=== PATIENT | female | born 1940 | race Caucasian/White ===

== ENCOUNTER 2018-01-05 10:34 | Emergency (ER) | payer OTHER ==
[2018-01-05] MEDS ORDERED: ONDANSETRON 4 MG/2 ML VIAL ONE (10:47)
[2018-01-05] MEDS ORDERED: MORPHINE 4 MG/ML SYR ONE (10:47)
[2018-01-05] MEDS ORDERED: BUPIVACAINE 0.5% PF 10 ML VIAL ONE (11:17)
[2018-01-05] MEDS ORDERED: LIDOCAINE 1% MPF 5 ML VIAL ONE (11:17)
[2018-01-05] MEDS ORDERED: LIDOCAINE 1% W/EPI 1:100,000 MDV 50 ML VIAL ONE (11:19)
--- NOTE | 2018-01-05 12:07 | RAD REPORT ---
EXAM DESCRIPTION: RAD - Wrist Left 3 View - 01/05/2018 11:08 am CLINICAL HISTORY: Fall, wrist pain COMPARISON: None. FINDINGS: Comminuted fracture dislocation of the distal radius is identified. The distal components are fragmented. The ventral portion of the distal radius fracture fragment remains approximated to th e shaft. There is significant angulation deformity. The dorsal fracture fragment is displaced and ove rlaps the distal humerus. Carpal bones are displaced along with the fracture fragment. The fusiform o r triquetrum bone was not displaced. Advanced degenerative change at the first metacarpal trapezium articulation. IMPRESSION: Comminuted distal radius fracture with fragmentation of the distal component. There is p artial dorsal dislocation and overlap of the distal fracture fragments. The triquetrum or pisiform bone maintains normal positioning to the ulna with the remaining carpal yesi socorro displaced posteriorly. Scaphoid and lunate bones maintain normal positioning to the displaced dis brunilda radius fracture fragment.
--- NOTE | 2018-01-05 13:36 | RAD REPORT ---
EXAM DESCRIPTION: RAD - Wrist Left 2 View - 01/05/2018 1:28 pm FINDINGS: Frontal and lateral projections were obtained labeled post reduction. Comminuted distal radius fracture is again identified. There has been reduction to near anatomic alig nment and position. Ulna styloid fracture is evident. Carpal bones appear to be in anatomic position.
--- NOTE | 2018-01-05 14:06 | ER ---
Nurse's Notes [facility] Name: Rosa Ag Age: 77 yrs Sex: Female : 1940 Arrival Date: 01/05/2018 Time: 10:35 Bed 4 Private MD: Surendra Avendano T Diagnosis: Left Distal Radius Fracture Presentation: 01/05 10:38 Presenting complaint: Patient states: Left arm and right wrist pain after fall from hb standing approx [address] TECH. Negative LOC. Not on blood thinners. Transition of care: patient was not received from another setting of care. Onset of symptoms was January 05, 2018. Care prior to arrival: None. 10:38 Method Of Arrival: Ambulatory hb 10:38 Acuity: RITA 3 hb 10:45 Initial Sepsis Screen: Does the patient meet any 2 criteria? No. Patient's initial hb sepsis screen is negative. Does the patient have a suspected source of infection? No. Patient's initial sepsis screen is negative. 10:45 Mechanism of Injury: Fall from standing position. Trauma event details: Injury occurred hb in the [facility], Injury occurred: at home. Injury occurred: January 05, 2018. Trauma Activation: Not Applicable Physician: ED Physician; Name: ; Notified At: ; Arrived At: Physician: General Surgeon; Name: ; Notified At: ; Arrived At: Physician: Radiology; Name: ; Notified At: ; Arrived At: Physician: Respiratory; Name: ; Notified At: ; Arrived At: Physician: Lab; Name: ; Notified At: ; Arrived At: Historical: - Allergies: 10:44 Levaquin; hb - PMHx: 10:44 Asthma; hb - Immunization history: Last tetanus immunization: < 5 years ago. - Social history:: Smoking status: Patient/guardian denies using tobacco. Screenin:42 Abuse screen: Denies threats or abuse. Denies injuries from another. Tuberculosis hb screening: No symptoms or risk factors identified. 10:42 Nutritional screening: No deficits noted. Fall Risk None identified. hb Primary Survey: 10:40 A: Airway: patent, No supplemental oxygen in use on arrival. Oral cavity: clear, hb Trachea midline. Breathing/Chest: Respiratory pattern: regular, Respiratory effort: spontaneous, unlabored, Breath sounds: clear, bilaterally. Chest inspection: symmetrical rise and fall of the chest. Circulation: Pulses: palpable . Skin color: pink, Skin temperature: warm, dry. Disability Alert. 11:30 Reassessment Airway Airway Patent Breathing/Chest Respiratory pattern Regular hb Respiratory effort Spontaneous Unlabored Chest inspection Symmetrical Circulation Pulses Palpable Color [place] Disability Alert. 12:30 Reassessment Airway Airway Patent Oxygen No O2 Breathing/Chest Respiratory pattern hb Regular Respiratory effort Spontaneous Unlabored Chest inspection Symmetrical Circulation Pulses Palpable Color [place] Disability Alert. 13:30 Reassessment Airway Airway Patent Oxygen No O2 Breathing/Chest Respiratory pattern hb Regular Respiratory effort Spontaneous Unlabored Chest inspection Symmetrical Circulation Pulses Palpable Color [place] Disability Alert. Secondary Survey: 10:40 HEENT: No deficits noted. Gastrointestinal: No deficits noted. : No deficits noted. hb No signs and/or symptoms were reported regarding the genitourinary system. Musculoskeletal: left wrist. Assessment: 10:45 General: Appears in no apparent distress. uncomfortable, Behavior is cooperative, hb anxious, crying. Pain: Pain currently is 8 out of 10 on a pain scale. Neuro: Level of Consciousness is awake, alert, obeys commands, Oriented to person, place, time, situation. EENT: No signs and/or symptoms were reported regarding the EENT system. Cardiovascular: Capillary refill < 3 seconds Patient's skin is warm and dry. Respiratory: Airway is patent Respiratory effort is even, unlabored, Respiratory pattern is regular, symmetrical. GI: No signs and/or symptoms were reported involving the gastrointestinal system. : No signs and/or symptoms were reported regarding the genitourinary system. Derm: No signs and/or symptoms reported regarding the dermatologic system. Skin is intact, is healthy with good turgor, Skin is pink, warm \T\ dry. Musculoskeletal: left wrist. Vital Signs: 10:39 BP 133 / 97; Pulse 89; Resp 18; Temp 97.9; Pulse Ox 100% on R/A; Pain 10/10; hb 11:30 BP 136 / 86; Pulse 88; Resp 16; Pulse Ox 100% on R/A; hb 12:30 BP 156 / 79; Pulse 62; Resp 18; Pulse Ox 96% ; sv 13:32 BP 154 / 80; Pulse 67; Resp 18; Pulse Ox 96% ; sv [place] Coma Score: 11:30 Eye Response: spontaneous(4). Verbal Response: oriented(5). Motor Response: obeys hb commands(6). Total: 15. Trauma Score (Adult): 10:39 Eye Response: spontaneous(1); Verbal Response: oriented(1); Motor Response: obeys hb commands(2); Systolic BP: > 89 mm Hg(4); Respiratory Rate: 10 to 29 per min(4); [place] Score: 15; Trauma Score: 12 11:30 Eye Response: spontaneous(1); Verbal Response: oriented(1); Motor Response: obeys hb commands(2); Systolic BP: > 89 mm Hg(4); Respiratory Rate: 10 to 29 per min(4); Mary Score: 15; Trauma Score: 12 ED Course: 10:35 Patient arrived in ED. as 10:36 Surendra Avendano MD is Private Physician. as 10:36 Ta Bui PA is PHCP. cp 10:36 Jason Loredo MD is Attending Physician. cp 10:39 Triage completed. hb 10:45 Patient has correct armband on for positive identification. Bed in low position. Call hb light in reach. Side rails up X 1. 10:45 Arm band placed on right wrist. hb 10:46 Inserted saline lock: 20 gauge in right antecubital area, using aseptic technique. ss Blood collected. 10:53 Ema Avery, RN is Primary Nurse. hb 10:55 Patient maintains SpO2 saturation greater than 95% on room air. Thermoregulation: warm hb blanket given to patient. 11:03 X-ray completed. Portable x-ray completed in exam room. Patient tolerated procedure jb2 poorly. DUE TO PAIN. 11:04 XRAY Wrist LEFT 3 view In Process Unspecified. EDMS 13:25 X-ray completed. Portable x-ray completed in exam room. Patient tolerated procedure sw well. 13:26 XRAY Wrist LEFT 2 view In Process Unspecified. EDMS 14:05 Guillermo Larson MD is Referral Physician. cp 14:12 Orthoglass splint: Sugar tong splint applied on left arm. Radial pulse present and jb1 within normal limits before and after application of orthoglass splint. Capillary refill was three seconds before and after application of the orthoglass splint. Sling applied to left arm. 14:26 No provider procedures requiring assistance completed. Patient did not have IV access hb during this emergency room visit. Administered Medications: 10:54 Drug: morphine 4 mg Route: IVP; Site: right antecubital; hb 11:30 Follow up: Response: No adverse reaction; Pain is decreased hb 10:54 Drug: Zofran 4 mg Route: IVP; Site: right antecubital; hb 14:25 Follow up: Response: No adverse reaction hb 11:33 Drug: Marcaine (0.5 %) 5 ml {Note: by MARÍA Page.} Volume: 10 ml; Route: Infiltration; hb 11:35 Drug: Lidocaine-Epinephrine -1%: (1:100,000) 5 ml {Note: by MARÍA Page.} Volume: 20 ml; hb Route: Infiltration; Intake: 14:27 PO: 0ml; Total: 0ml. hb Output: 14:27 Urine: 0ml; Total: 0ml. hb Outcome: 13:38 Patient's length of stay in the Emergency Department was greater than 2 hours. awaiting hb dispo Patient's length of stay extended due to 14:05 Discharge ordered by MD. cp 14:26 Discharged to home via wheelchair, with friend. hb 14:26 Condition: stable 14:26 Discharge instructions given to patient, Instructed on discharge instructions, follow up and referral plans. medication usage, Demonstrated understanding of instructions, follow-up care, medications, Prescriptions given X 1. 14:28 Patient left the ED. hb Signatures: Dispatcher [employer] EDMS Jordan Siegel1 Tona Galicia, Willy Boswell RN2 Vivian Brooks Shelby, RN RN ss Warren, Shannon sw Page, Corey, PA PA cp Baxter, Heather, RN RN hb Corrections: (The following items were deleted from the chart) 14:29 14:26 Discharge instructions given to patient, Instructed on discharge instructions, hb follow up and referral plans. medication usage, Demonstrated understanding of instructions, follow-up care, medications, hb
--- NOTE | 2018-01-05 14:06 | EDPHYS ---
Physician Documentation [facility] Name: Rosa Ag Age: 77 yrs Sex: Female : 1940 Arrival Date: 01/05/2018 Time: 10:35 Bed 4 Private MD: Surendra Avendano T ED Physician Jason Loredo HPI: 01/05 10:40 This 77 yrs old Female presents to ER via Ambulatory with complaints of Wrist cp Injury. 10:40 The patient or guardian reports decreased range of motion, deformity, injury, pain. The cp complaints affect the left wrist diffusely. Context: The problem was sustained at home, resulted from a fall. Onset: The symptoms/episode began/occurred just prior to arrival. Historical: - Allergies: 10:44 Levaquin; hb - PMHx: 10:44 Asthma; hb - Immunization history: Last tetanus immunization: < 5 years ago. - Social history:: Smoking status: Patient/guardian denies using tobacco. ROS: 10:45 Constitutional: Negative for body aches, chills, fever, poor PO intake. cp 10:45 Eyes: Negative for injury, pain, redness, and discharge. cp 10:45 ENT: Negative for drainage from ear(s), ear pain, sore throat, difficulty swallowing, difficulty handling secretions. 10:45 Cardiovascular: Negative for chest pain, edema, palpitations. 10:45 Respiratory: Negative for cough, shortness of breath, wheezing. 10:45 Abdomen/GI: Negative for abdominal pain, nausea, vomiting, and diarrhea, black/tarry stool, rectal bleeding. 10:45 Back: Negative for pain at rest, pain with movement, radiated pain. 10:45 MS/extremity: Positive for injury or acute deformity, decreased range of motion, pain, of the left wrist. 10:45 Neuro: Negative for altered mental status, headache, loss of consciousness, syncope, near syncope, weakness. 10:45 All other systems are negative. Exam: 10:52 Head/Face: Normocephalic, atraumatic. cp 10:52 Constitutional: The patient appears in no acute distress, alert, awake, non-diaphoretic, non-toxic, well developed, well nourished, uncomfortable. 10:55 Eyes: Periorbital structures: appear normal, Conjunctiva: normal, no exudate, no cp injection, Sclera: no appreciated abnormality, Lids and lashes: appear normal, bilaterally. 10:55 ENT: External ear(s): are unremarkable, Nose: is normal, Mouth: is normal, Posterior pharynx: is normal, airway is patent, no erythema, no exudate. 10:55 Neck: C-spine: vertebral tenderness, is not appreciated, crepitus, is not appreciated, ROM/movement: is normal, is supple, without pain, no range of motions limitations, no nuchal rigidity. 10:55 Chest/axilla: Inspection: normal, Palpation: is normal, no crepitus, no tenderness. 10:55 Cardiovascular: Rate: normal, Rhythm: regular. 10:55 Respiratory: the patient does not display signs of respiratory distress, Respirations: cp normal, no use of accessory muscles, no retractions, no splinting, no tachypnea, Breath sounds: are clear throughout, no decreased breath sounds, no stridor, no wheezing. 10:55 Abdomen/GI: Inspection: abdomen appears normal, Bowel sounds: active, all quadrants, Palpation: abdomen is soft and non-tender, in all quadrants, rebound tenderness, is not appreciated, voluntary guarding, is not appreciated, involuntary guarding, is not appreciated. 10:55 Back: pain, is absent, ROM is normal. 10:55 Musculoskeletal/extremity: Pulses: noted to be 2+ in the right radial artery and left radial artery, Sensation intact. Joints: All joints are normal except the left wrist displays deformity, painful range of motion, swelling, tenderness. 10:55 Skin: cellulitis, is not appreciated, no rash present. 10:55 Neuro: Orientation: to person, place \T\ time. Mentation: is normal, lucid, able to follow commands. Vital Signs: 10:39 BP 133 / 97; Pulse 89; Resp 18; Temp 97.9; Pulse Ox 100% on R/A; Pain 10/10; hb 11:30 BP 136 / 86; Pulse 88; Resp 16; Pulse Ox 100% on R/A; hb 12:30 BP 156 / 79; Pulse 62; Resp 18; Pulse Ox 96% ; sv 13:32 BP 154 / 80; Pulse 67; Resp 18; Pulse Ox 96% ; sv [place] Coma Score: 11:30 Eye Response: spontaneous(4). Verbal Response: oriented(5). Motor Response: obeys hb commands(6). Total: 15. Trauma Score (Adult): 10:39 Eye Response: spontaneous(1); Verbal Response: oriented(1); Motor Response: obeys hb commands(2); Systolic BP: > 89 mm Hg(4); Respiratory Rate: 10 to 29 per min(4); Mary Score: 15; Trauma Score: 12 11:30 Eye Response: spontaneous(1); Verbal Response: oriented(1); Motor Response: obeys hb commands(2); Systolic BP: > 89 mm Hg(4); Respiratory Rate: 10 to 29 per min(4); Mary Score: 15; Trauma Score: 12 Procedures: 14:15 Reduction: of the left wrist, using traction, Patient tolerated well. hematoma block cp performed using 5 ccs of 50/50 mixture of 1% lidocaine with epi and 0.5% marcaine. 14:20 Splinting: Splint applied to left wrist using Orthoglass splint, sugar tong type. cp applied by myself. tech. Examined by me, post splint application: neurovascular intact, Patient tolerated well. MDM: 10:36 Patient medically screened. cp 11:00 Differential diagnosis: dislocation, open fracture, closed fracture, contusion. cp 14:05 Data reviewed: vital signs, nurses notes, radiologic studies, plain films, and as a cp result, I will discharge patient. 14:05 Test interpretation: by ED physician or midlevel provider: plain radiologic studies. cp Counseling: I had a detailed discussion with the patient and/or guardian regarding: the historical points, exam findings, and any diagnostic results supporting the discharge/admit diagnosis, radiology results, the need for outpatient follow up, a orthopedic surgeon, to return to the emergency department if symptoms worsen or persist or if there are any questions or concerns that arise at home. Response to treatment: the patient's symptoms have markedly improved after treatment. 01/05 10:41 Order name: XRAY Wrist LEFT 3 view; Complete Time: 12:13 cp 01/05 12:14 Interpretation: Reviewed. cp 01/05 13:20 Order name: XRAY Wrist LEFT 2 view; Complete Time: 13:39 cp 01/05 10:41 Order name: IV; Complete Time: 10:46 cp 01/05 13:35 Order name: Splint: left wrist sugartong; Complete Time: 14:22 cp 01/05 13:35 Order name: Cindy; Complete Time: 14:22 cp Administered Medications: 10:54 Drug: morphine 4 mg Route: IVP; Site: right antecubital; hb 11:30 Follow up: Response: No adverse reaction; Pain is decreased hb 10:54 Drug: Zofran 4 mg Route: IVP; Site: right antecubital; hb 14:25 Follow up: Response: No adverse reaction hb 11:33 Drug: Marcaine (0.5 %) 5 ml {Note: by MARÍA Bui.} Volume: 10 ml; Route: Infiltration; hb 11:35 Drug: Lidocaine-Epinephrine -1%: (1:100,000) 5 ml {Note: by MARÍA Bui.} Volume: 20 ml; hb Route: Infiltration; Disposition: 16:40 Co-signature as Attending Physician, Jason Loredo MD. rn Disposition: 01/05/18 14:05 Discharged to Home. Impression: Left Distal Radius Fracture. - Condition is Stable. - Discharge Instructions: Wrist Fracture. - Prescriptions for Tylenol- Codeine #3 300-30 mg Oral Tablet - take 2 tablets by ORAL route every 6 hours As needed; 20 tablet. - Medication Reconciliation Form, Thank You Letter, Antibiotic Education, Prescription Opioid Use form. - Follow up: Guillermo Larson MD; When: 1 - 2 days; Reason: Recheck today's complaints. - Problem is new. - Symptoms have improved. Signatures: Dispatcher [employer] Jason Anderson MD MD rn Page, Corey, PA PA cp Baxter, Heather RN RN
[2018-01-05 14:34] VITALS: TEMP 97.9
[2018-01-05 14:37] VITALS: O2SAT 96
[2018-01-05 14:38] VITALS: BP 154/80
== END 2018-01-05 14:28 | disposition home or self-care (01) ==
LOC: ER 10:34
PROC: 2W3DX1Z Immobilization of Left Lower Arm using Splint (ICD-10-PCS; principal; 2018-01-05)
DX: S52.502A Unspecified fracture of the lower end of left radius, initial encounter for closed fracture (principal); W19.XXXA Unspecified fall, initial encounter; Y92.9 Unspecified place or not applicable
CPT/HCPCS: 29125; 73100; 73110; 96374; 96375; 99284; J2405

== ENCOUNTER 2018-01-11 06:18 | Day surgery (SDC) | payer OTHER ==
[2018-01-10 13:50] LABS: Absolute Lymphocytes (CBC) 1.7 K/uL (0.7-4.9); Absolute Monocytes 0.8 K/uL (0.1-1.3); Absolute Neutrophil 5.4 K/uL (1.8-8.0); Basophils % 0.4 % (0-1.3); Eosinophils % 2.5 % (0-4.4); Hematocrit 36.9 % (36.0-45.0); Lymphocytes % 20.7 % (15.3-44.8); MCH 30.2 pg (27.0-35.0); MCV 90.7 fL (80-100); MPV 8.2 fL (7.6-11.3); Monocytes % 9.4 % (3.3-12.3); RBC Red Blood Cell Count 4.06 M/uL (3.86-4.86)
[2018-01-10 13:59] LABS: Potassium 4.3 mEq/L (3.6-5.0)
[2018-01-10 14:03] LABS: Albumin 4.1 g/dL (3.2-5.5); Bilirubin Total 0.6 mg/dL (0.3-1.2); Protein, Total 7.1 g/dL (6.0-8.3)
[2018-01-10 14:11] LABS: A1c Component 0.44 mg/dL; Hemoglobin A1c 5.3 % (4-6.0)
--- NOTE | 2018-01-10 14:21 | RAD REPORT ---
EXAM DESCRIPTION: Iris Pa And Lat (2 Views)01/10/2018 2:16 pm CLINICAL HISTORY: Preop COMPARISON: August 2017 FINDINGS: The lungs appear clear of acute infiltrate. The heart is normal size. Scoliosis involves the thoracolumbar spine. IMPRESSION: No acute abnormalities displayed
--- NOTE | 2018-01-10 15:24 | EKG ---
Test Date: 2018-01-10 Test Time: 13:25:12 Rubber Press Operator: RACHEL MEASUREMENT RESULTS: Intervals: Rate: 73 ND: 138 QRSD: 72 QT: 390 QTc: 429 [place]: P: 25 ND: 138 QRS: 22 T: 21 INTERPRETIVE STATEMENTS: Normal sinus rhythm Normal ECG Compared to ECG 08/16/2017 13:06:19 No significant changes Electronically Signed On 01-10-18 15:23:19 CDT by Royce Plummer
[2018-01-10 15:43] LABS: Urine Appearance SL CLOUDY; Urine Color YELLOW
[2018-01-10 15:44] LABS: Urine Bilirubin 1+ (NEG); Urine Blood TRACE (NEG); Urine Glucose NEGATIVE (NEG); Urine Protein TRACE (NEG); Urine Specific Gravity >1.030 (1.005-1.030)
[2018-01-10 15:45] LABS: Urine Microscopic Reflex ORDER UMIC; Urine Urobilinogen 0.2 mg/dL (0.2-1.0)
[2018-01-10 16:13] LABS: Urine Amorphous Sediment 3+ /HPF (NONE SEEN); Urine Bacteria 20-50 /HPF (<20); Urine Culture Reflex Order REFLEXED; Urine RBC <5 /HPF (NONE SEEN)
[2018-01-11] MEDS ORDERED: Ringers Lactate 1,000 ML IV ONE (06:39)
[2018-01-11] MEDS ORDERED: CEFAZOLIN/SWI 1gm 0 GM/0 ML SYR ONE (06:43)
[2018-01-11 07:01] VITALS: BP 119/66; TEMP 98.9; O2SAT 95
[2018-01-11] MEDS ORDERED: PROPOFOL 200 MG/20 ML VIAL IV ONE (07:11)
[2018-01-11] MEDS ORDERED: LIDOCAINE 2% MPF 5 ML VIAL ONE (07:11)
[2018-01-11] MEDS ORDERED: FENTANYL CITR 100 MCG/2 ML ONE (07:11)
[2018-01-11] MEDS ORDERED: ONDANSETRON 4 MG/2 ML VIAL ONE (07:12)
[2018-01-11] MEDS ORDERED: MEPERIDINE HCL 25 MG/0.5 ML ONE (07:45)
[2018-01-11 11:02] LABS: Urine Appearance CLOUDY; Urine Bilirubin NEGATIVE (NEG); Urine Blood NEGATIVE (NEG); Urine Color YELLOW; Urine Glucose NEGATIVE (NEG); Urine Protein NEGATIVE (NEG); Urine Specific Gravity 1.015 (1.005-1.030); Urine Urobilinogen 0.2 mg/dL (0.2-1.0)
[2018-01-11 11:08] LABS: Urine Microscopic Reflex ORDER UMIC
[2018-01-11 11:19] LABS: Urine Bacteria >50 /HPF (<20); Urine Culture Reflex Order REFLEXED; Urine RBC <5 /HPF (NONE SEEN)
== END 2018-01-11 09:00 | disposition home health service (06) ==
LOC: OR 06:18
PROVIDERS: ATTEND Orthopaedic Surgery
DX: S52.532A Colles' fracture of left radius, initial encounter for closed fracture (principal); Z53.8 Procedure and treatment not carried out for other reasons
CPT/HCPCS: 36415; 71046; 80053; 83036; 85025; 87077 ×2; 87086; 87088; 87186 ×2; 93005; J2175; 81003; 81015; J0690; J2405; J3010

== ENCOUNTER 2018-11-26 13:58 | Emergency (ER) | payer OTHER ==
--- OUTSIDE RECORDS SUMMARY | 2018-11-26 14:00 | XMS REPORT | Clinical Summary ---
:1940 Author Organization [facility] Address [address] [place] [id number] Care Team Providers Name Role Phone Asked, No Pcp Primary Care Provider Unavailable Allergies No Known Allergies Medications No known medications Active Problems Problem Noted Date Fracture, Colles, left, closed 01/17/2018 Encounters Date Type Specialty Care Team Description 04/25/2018 Office Visit Orthopedic Surgery Nino Cisneros Arthritis of carpometacarpal (CMC) joint of left thumb (Primary Dx); MD Bella Left wrist pain 03/21/2018 Office Visit Orthopedic Surgery Nino Cisneros Closed fracture of distal MD Bella end of radius with routine healing, unspecified fracture morphology, unspecified laterality, subsequent encounter (Primary Dx) 03/09/2018 Office Visit Orthopedic Surgery Nino Cisneros Closed Aleksandra' fracture of MD Bella left radius, initial encounter (Primary Dx) 03/02/2018 Office Visit Orthopedic Surgery Nino Cisneros Closed Aleksandra' fracture of MD Bella left radius, initial encounter (Primary Dx) 02/21/2018 Office Visit Orthopedic Surgery Nino Cisneros Closed Aleksandra' fracture of MD Bella left radius, initial encounter (Primary Dx) 01/31/2018 Office Visit Orthopedic Surgery Nino Cisneros Closed Darryns' fracture of MD Bella left radius, initial encounter (Primary Dx) 01/17/2018 Office Visit Orthopedic Surgery Nino Cisneros Closed Aleksandra' fracture of MD Bella left radius, initial encounter (Primary Dx) 01/12/2018 Office Visit Orthopedic Surgery Nino Cisneros Closed Colles' fracture of left radius, initial encounter (Primary Dx); MD Bella Left wrist pain after 11/25/2017 Social History Tobacco Use Types Packs/Day Years Used Date Never Assessed Sex Assigned at Date Recorded Not on file Job Start Date Occupation Industry Not on file Not on file Not on file Travel History Travel Start Travel End No recent travel history available. Last Filed Vital Signs Not on file Plan of Treatment Health Maintenance Due Date Last Done Comments SHINGLES VACCINES (#1) 1992 65+ PNEUMOCOCCAL VACCINE (1 of 2 - PCV13) 2007 PNEUMOCOCCAL POLYSACCHARIDE VACCINE AGE 65 AND OVER 2007 INFLUENZA VACCINE 04/13/2018 Procedures Procedure Name Priority Date/Time Associated Diagnosis Comments XR WRIST 3+ VW LEFT Routine 04/25/2018 9:48 Left wrist pain Results for this AM CDT procedure are in the results section. [place] ARTHROCENTESIS Routine 04/25/2018 9:45 Arthritis of Results for this ASPIR&/INJ SMALL AM CDT carpometacarpal (CMC) procedure are in JT/BURSA W/O US joint of left thumb the results section. XR WRIST 3+ VW LEFT Routine 02/21/2018 10:30 Closed Colles' Results for this AM CDT fracture of left procedure are in radius, initial the results encounter section. XR WRIST 3+ VW LEFT Routine 01/12/2018 11:21 Left wrist pain Results for this AM CDT procedure are in the results section. after 11/25/2017 Results XR Wrist 3+ Vw Left (04/25/2018 9:48 AM CDT)Only the most recent of3 resultswithin the time period is included. Narrative Performed At 3 views left wrist in good penetrance and quality with out any acute [facility] obvious fractures, dislocations or calcifications unless HPI states otherwise. Performing Organization Address City/State/Zipcode Phone Number [facility] [address] [place] [address] Hand/Upper Extremity Injection/Arthrocentesis (04/25/2018 9:45 AM CDT) Narrative Performed At Nino Cisneros MD 04/26/20188:15 AM Hand/Upper Extremity Injection/Arthrocentesis Date/Time: 04/25/2018 12:22 PM Consent given by: patient Supporting Documentation Indications: pain Procedure Details Condition: osteoarthritis Site: L thumb Left side: Needle size: 25 G Approach: posterior Left thumb medications administered: 1 mL lidocaine 10 mg/mL (1 %); 6 mg betamethasone acetate & sodium phosphate 6 mg/mL Patient tolerance: patient tolerated the procedure well with no immediate complications after 11/25/2017 Insurance Payer Benefit Plan / Group Subscriber ID Type Phone Address MEDICARE MEDICARE PART A AND B xxxxxxxxxx Medicare [place], [place] Advance Directives Patient has advance care planning documents on file. For more information, please contact:Efrain Segundo[address] [place] [address]
--- NOTE | 2018-11-26 17:28 | RAD REPORT ---
EXAM DESCRIPTION: RAD - Lumbar Spine 3 Views - 11/26/2018 4:58 pm CLINICAL HISTORY: LOWER BACK PAIN Radiculopathy COMPARISON: No comparisons FINDINGS: Diffuse osteopenia is seen with multiple mild wedge compression deformities noted in the l ower thoracic and lumbar lumbar vertebral bodies, undetermined age. Moderate degenerative levoscolios is is present. Cholecystectomy clips noted. Followup MR imaging the thoracic and lumbar spine would b e helpful for assessment of the age of the above detailed mild compression deformities.
--- NOTE | 2018-11-26 17:30 | ER ---
Nurse's Notes [facility] Name: Rosa Ag Age: 78 yrs Sex: Female : 1940 Arrival Date: 11/26/2018 Time: 14:01 Bed 30 Private MD: Surendra Avendano T Diagnosis: Low back pain Presentation: 11/26 14:18 Presenting complaint: Patient states: "I hurt my back trying to [employer] a heavy rock in aa5 the garden on ". Pt c/o right hip, right lower back pain. Transition of care: patient was not received from another setting of care. Onset of symptoms was November 2018. Risk Assessment: Do you want to hurt yourself or someone else? Patient reports no desire to harm self or others. Initial Sepsis Screen: Does the patient meet any 2 criteria? No. Patient's initial sepsis screen is negative. Does the patient have a suspected source of infection? No. Patient's initial sepsis screen is negative. Care prior to arrival: None. 14:18 Method Of Arrival: Ambulatory aa5 14:18 Acuity: RITA 4 aa5 Historical: - Allergies: 14:20 Levaquin; aa5 - PMHx: 14:20 Asthma; aa5 - PSHx: 14:20 cataracts; aa5 14:20 Cholecystectomy; aa5 14:20 Tonsillectomy; aa5 - Immunization history:: Flu vaccine is not up to date. - Social history:: Smoking status: Patient/guardian denies using tobacco. - Ebola Screening: : No symptoms or risks identified at this time. Screenin:55 Abuse screen: Denies threats or abuse. Nutritional screening: No deficits noted. la1 Tuberculosis screening: No symptoms or risk factors identified. Fall Risk None identified. No fall in past 12 months (0 pts). No secondary diagnosis (0 pts). No IV (0 pts). Ambulatory Aid- None/Bed Rest/Nurse Assist (0 pts). Gait- Weak (10 pts.). Mental Status- Oriented to own ability (0 pts). Total [place] Fall Scale indicates Low Risk Score (25-44 pts). Family Present and informed to notify staff if they need to leave bedside. Assessment: 14:54 General: Appears in no apparent distress. Behavior is calm, cooperative. Pain: la1 Complains of pain in right hip and right lower back. Neuro: Level of Consciousness is awake, alert, obeys commands, Oriented to person, place, time, situation, Moves all extremities. Gait is slow. Speech is normal. Cardiovascular: Capillary refill < 3 seconds Patient's skin is warm and dry. Respiratory: Airway is patent Respiratory effort is even, unlabored, Respiratory pattern is regular, symmetrical. GI: No signs and/or symptoms were reported involving the gastrointestinal system. : No signs and/or symptoms were reported regarding the genitourinary system. 16:48 Reassessment: Patient appears in no apparent distress at this time. No changes from la1 previously documented assessment. Patient and/or family updated on plan of care and expected duration. Pain level reassessed. Patient is alert, oriented x 3, equal unlabored respirations, skin warm/dry/pink. 17:49 Reassessment: Patient appears in no apparent distress at this time. No changes from la1 previously documented assessment. Patient and/or family updated on plan of care and expected duration. Pain level reassessed. Patient is alert, oriented x 3, equal unlabored respirations, skin warm/dry/pink. Patient states symptoms have improved. Vital Signs: 14:20 BP 132 / 80; Pulse 76; Resp 16 S; Temp 99.7(O); Pulse Ox 96% on R/A; Weight 58.97 kg aa5 (R); Height 5 ft. 2 in. (157.48 cm) (R); Pain 10/10; 17:49 BP 128 / 74; Pulse 81; Resp 16; Pulse Ox 98% on R/A; la1 14:20 Body Mass Index 23.78 (58.97 kg, 157.48 cm) aa5 ED Course: 14:01 Patient arrived in ED. mr 14:01 Surendra Avendano MD is Private Physician. mr 14:19 Triage completed. aa5 14:19 Arm band placed on. aa5 14:44 Zev Peña NP is PHCP. pm1 14:44 Jason Loredo MD is Attending Physician. pm1 14:54 Yair Everett, ZENOBIA is Primary Nurse. la1 14:55 Call light in reach. Side rails up X 1. la1 16:58 Lumbar Spine (3 Views) XRAY In Process Unspecified. EDMS 17:49 No provider procedures requiring assistance completed. Patient did not have IV access la1 during this emergency room visit. Administered Medications: 15:52 Drug: Ibuprofen 400 mg Route: PO; la1 15:52 Drug: traMADol 50 mg Route: PO; la1 15:52 Drug: Valium 2 mg Route: PO; la1 Outcome: 17:29 Discharge ordered by . pm1 17:49 Discharged to home ambulatory. la1 17:49 Condition: stable 17:49 Discharge instructions given to patient, Instructed on discharge instructions, follow up and referral plans. medication usage, Demonstrated understanding of instructions, follow-up care, medications, Prescriptions given X 2. 17:50 Patient left the ED. la1 Signatures: Dispatcher [employer] EDJohanna Bond FelicianoAngela sequeira, RN RN bridget5 Yair Everett RN RN la1 Zev Peña, BEATER BOSS BEATER BOSS pm1
--- NOTE | 2018-11-26 17:30 | EDPHYS ---
Physician Documentation [facility] Name: Rosa Ag Age: 78 yrs Sex: Female : 1940 Arrival Date: 11/26/2018 Time: 14:01 Bed 30 Private MD: Surendra Avendano T ED Physician Jason Loredo HPI: 11/26 15:53 This 78 yrs old Female presents to ER via Ambulatory with complaints of Back pm1 Pain. 15:53 The patient presents with pain that is acute. pm1 15:53 The symptoms are located in the low back. Onset: The symptoms/episode began/occurred 2 pm1 day(s) ago. The pain does not radiate. Associated signs and symptoms: Pertinent negatives: abdominal pain, dysuria, fever, headache, incontinence, numbness, tingling, urinary retention, vomiting, weakness. The problem was sustained when bending over, when lifting heavy object, Large piece of granite. Modifying factors: The patient symptoms are alleviated by remaining still, rest, the patient symptoms are aggravated by bending, coughing, movement. Severity of symptoms: in the emergency department the symptoms are unchanged. The patient has not experienced similar symptoms in the past. The patient has not recently seen a physician. Patient was lifting a large piece of granite in her garden and she felt a crunch in her back and has had right sided low back pain since then. Historical: - Allergies: 14:20 Levaquin; aa5 - PMHx: 14:20 Asthma; aa5 - PSHx: 14:20 cataracts; aa5 14:20 Cholecystectomy; aa5 14:20 Tonsillectomy; aa5 - Immunization history:: Flu vaccine is not up to date. - Social history:: Smoking status: Patient/guardian denies using tobacco. - Ebola Screening: : No symptoms or risks identified at this time. ROS: 15:53 Constitutional: Negative for fever, chills, and weight loss, Eyes: Negative for injury, pm1 pain, redness, and discharge, ENT: Negative for injury, pain, and discharge, Neck: Negative for injury, pain, and swelling, Cardiovascular: Negative for chest pain, palpitations, and edema, Respiratory: Negative for shortness of breath, cough, wheezing, and pleuritic chest pain, Abdomen/GI: Negative for abdominal pain, nausea, vomiting, diarrhea, and constipation. 15:53 : Negative for injury, bleeding, discharge, and swelling, MS/Extremity: Negative for injury and deformity, Skin: Negative for injury, rash, and discoloration, Neuro: Negative for headache, weakness, numbness, tingling, and seizure. 15:53 Back: Positive for pain with movement, of the right low back, pain. Exam: 15:53 Constitutional: This is a well developed, well nourished patient who is awake, alert, pm1 and in no acute distress. Head/Face: Normocephalic, atraumatic. Eyes: Pupils equal round and reactive to light, extra-ocular motions intact. Lids and lashes normal. Conjunctiva and sclera are non-icteric and not injected. Cornea within normal limits. Periorbital areas with no swelling, redness, or edema. ENT: Nares patent. No nasal discharge, no septal abnormalities noted. Tympanic membranes are normal and external auditory canals are clear. Oropharynx with no redness, swelling, or masses, exudates, or evidence of obstruction, uvula midline. Mucous membranes moist. Neck: Trachea midline, no thyromegaly or masses palpated, and no cervical lymphadenopathy. Supple, full range of motion without nuchal rigidity, or vertebral point tenderness. No Meningismus. Chest/axilla: Normal chest wall appearance and motion. Nontender with no deformity. No lesions are appreciated. Cardiovascular: Regular rate and rhythm with a normal S1 and S2. No gallops, murmurs, or rubs. Normal PMI, no JVD. No pulse deficits. Respiratory: Lungs have equal breath sounds bilaterally, clear to auscultation and percussion. No rales, rhonchi or wheezes noted. No increased work of breathing, no retractions or nasal flaring. Abdomen/GI: Soft, non-tender, with normal bowel sounds. No distension or tympany. No guarding or rebound. No evidence of tenderness throughout. 15:53 Skin: Warm, dry with normal turgor. Normal color with no rashes, no lesions, and no evidence of cellulitis. MS/ Extremity: Pulses equal, no cyanosis. Neurovascular intact. Full, normal range of motion. 15:53 Back: normal spinal alignment noted, vertebral tenderness, is not appreciated, muscle spasm, is appreciated in the right low back. 15:53 Neuro: Orientation: is normal, Motor: is normal, moves all fours, Sensation: is normal, no obvious gross deficits. Vital Signs: 14:20 BP 132 / 80; Pulse 76; Resp 16 S; Temp 99.7(O); Pulse Ox 96% on R/A; Weight 58.97 kg aa5 (R); Height 5 ft. 2 in. (157.48 cm) (R); Pain 10/10; 17:49 BP 128 / 74; Pulse 81; Resp 16; Pulse Ox 98% on R/A; la1 14:20 Body Mass Index 23.78 (58.97 kg, 157.48 cm) aa5 MDM: 15:18 Patient medically screened. pm1 16:01 Data reviewed: vital signs. Data interpreted: Pulse oximetry: on room air is 96 %. pm1 Interpretation: normal. 17:29 Counseling: I had a detailed discussion with the patient and/or guardian regarding: the pm1 historical points, exam findings, and any diagnostic results supporting the discharge/admit diagnosis, radiology results, the need for outpatient follow up, to return to the emergency department if symptoms worsen or persist or if there are any questions or concerns that arise at home. 11/26 15:32 Order name: Lumbar Spine (3 Views) XRAY; Complete Time: 17:30 pm1 Administered Medications: 15:52 Drug: Ibuprofen 400 mg Route: PO; la1 15:52 Drug: traMADol 50 mg Route: PO; la1 15:52 Drug: Valium 2 mg Route: PO; la1 Disposition: 11/27 09:44 Co-signature as Attending Physician, Jason Loredo MD. rn Disposition: 11/26/18 17:29 Discharged to Home. Impression: Low back pain. - Condition is Stable. - Discharge Instructions: Back Pain, Adult, Muscle Strain, Musculoskeletal Pain, Back Injury Prevention, [id number]. - Prescriptions for Valium 2 mg Oral Tablet - take 1 tablet by ORAL route every 8 hours As needed; 10 tablet. Tramadol 50 mg Oral Tablet - take 1 tablet by ORAL route every 8 hours as needed; 12 tablet. - Medication Reconciliation Form, Thank You Letter, Prescription Opioid Use form. - Follow up: Emergency Department; When: As needed; Reason: Worsening of condition. Follow up: Private Physician; When: 2 - 3 days; Reason: Recheck today's complaints, Continuance of care, Re-evaluation by your physician. - Problem is new. - Symptoms have improved. Signatures: Dispatcher [employer] EDMS Jason Loredo MD MD rn Calderon, Audri RN RN aa5 Yair Everett RN RN la1 Zev Peña, EDGER MACHINE SETTER EDGER MACHINE SETTER pm1 Corrections: (The following items were deleted from the chart) 11/26 17:50 17:29 11/26/2018 17:29 Discharged to Home. Impression: Low back pain. Condition is la1 Stable. Forms are Medication Reconciliation Form, Thank You Letter, Antibiotic Education, Prescription Opioid Use. Follow up: Emergency Department; When: As needed; Reason: Worsening of condition. Follow up: Private Physician; When: 2 - 3 days; Reason: Recheck today's complaints, Continuance of care, Re-evaluation by your physician. Problem is new. Symptoms have improved. pm1
[2018-11-26 18:04] VITALS: TEMP 99.7
[2018-11-26 18:09] VITALS: BP 128/74; O2SAT 98
== END 2018-11-26 17:50 | disposition home or self-care (01) ==
LOC: ER 13:58
DX: M54.5 Low back pain (principal); J45.909 Unspecified asthma, uncomplicated; Z88.1 Allergy status to other antibiotic agents
CPT/HCPCS: 72100; 99283

== ENCOUNTER 2018-12-25 11:01 | Emergency (ER) | payer OTHER ==
--- OUTSIDE RECORDS SUMMARY | 2018-12-25 11:04 | XMS REPORT | Clinical Summary ---
:1940 Author Organization [facility] Address [address] [place] [id number] Care Team Providers Name Role Phone Asked, [...] Dx); MD Bella Left wrist pain after 12/24/2017 Social History Tobacco Use Types Packs/Day Years [...] AGE 65 AND OVER 2007 INFLUENZA VACCINE 04/13/2019 Procedures Procedure Name Priority Date/Time Associated Diagnosis Comments XR WRIST 3+ VW LEFT Routine 04/25/2018 9:48 Left wrist pain Results for this AM CDT procedure are in the results section. NC ARTHROCENTESIS Routine 04/25/2018 9:45 Arthritis of Results [...] procedure are in the results section. after 12/24/2017 Results XR Wrist 3+ Vw Left (04/25/2018 9:48 AM CDT)Only the most recent of3 resultswithin the time period is included. Narrative Performed At 3 views left wrist in good penetrance and quality with out any acute [facility] obvious fractures, dislocations or calcifications unless HPI states otherwise. Performing Organization Address City/State/Zipcode Phone Number [facility] [address] [place] [address] Hand/Upper Extremity Injection/Arthrocentesis (04/25/2018 9:45 AM CDT) [...] procedure well with no immediate complications after 12/24/2017 Insurance Payer Benefit Plan / Group Subscriber ID Type Phone Address MEDICARE MEDICARE PART A AND B xxxxxxxxxx Medicare [place], [place] Advance Directives Patient has advance care planning documents on file. For more information, please contact:Efrain Segundo[address] [place] [address]
[2018-12-25] MEDS ORDERED: NA CHLORIDE 0.9% 500 ML ONE (11:24)
[2018-12-25] MEDS ORDERED: ONDANSETRON 4 MG/2 ML VIAL ONE (11:24)
[2018-12-25] MEDS ORDERED: FENTANYL CITR 100 MCG/2 ML ONE (11:24)
[2018-12-25 11:37] LABS: Absolute Monocytes 0.6 K/uL (0.1-1.3); Absolute Neutrophil 4.2 K/uL (1.8-8.0); Basophils % 0.5 % (0-1.3); Eosinophils % 3.1 % (0-4.4); Hematocrit 39.7 % (36.0-45.0); Lymphocytes % 28.4 % (15.3-44.8); MPV 8.6 fL (7.6-11.3); Monocytes % 7.9 % (3.3-12.3); RBC Red Blood Cell Count 4.37 M/uL (3.86-4.86)
[2018-12-25 12:03] LABS: Albumin 4.1 g/dL (3.4-5.0); Bilirubin Direct 0.1 mg/dL (0-0.2); Bilirubin Total 0.4 mg/dL (0.2-1.0); Potassium 3.6 mmol/L (3.5-5.1)
--- NOTE | 2018-12-25 12:39 | RAD REPORT ---
EXAM DESCRIPTION: CT - Head C Spine Cap Wo Con - 12/25/2018 12:26 pm CLINICAL HISTORY: Fall, head and neck pain, left-sided chest pain, abdominal pain COMPARISON: None. TECHNIQUE: Axial [address] head images were obtained. Axial [address] cervical spine images were obtain ed with sagittal and coronal reconstruction images reviewed. Axial 5 mm images of the chest, abdomen and pelvis were obtained. All CT scans are performed using dose optimization technique as appropriate and may include automated exposure control or mA/KV adjustment according to patient size. FINDINGS: No intracranial hemorrhage, mass or edema. No midline shift or abnormal fluid collection. Mastoid air cells and paranasal sinuses are clear. No skull fracture. Mild atrophy and chronic ische juanjose changes are present. Cervical bodies are normal in height and alignment. No fracture or acute bone finding.Degenerative ch anges are present at the dens anterior C1 level. C3-4, C4-5, C5-6 and C6-7 disc space narrowing. Ther e are endplate spurring changes. Multilevel bony foraminal encroachment present worse on the left.No prevertebral soft tissue thickening or paraspinal mass.Central canal detail is inherently limited on CT imaging. CT chest shows no pneumothorax, pulmonary contusion or pleural fluid collection. No mediastinal hem atoma and the aorta and pulmonary arteries are unremarkable. No chest will mass or abnormal axillary finding. No displaced rib fractures seen. AC joint degenerative changes are present. Left scapula is intact. Proximal left humerus fracture is present separately detailed. Prominent thoracic and lumbar spine degenerative changes are present. Patient has scoliosis. An acute compression fracture is not i dentified. Prominent lower lumbar facet degenerative changes are present. CT abdomen and pelvis show no injury to solid abdominal viscera. Cholecystectomy clips are present. N o biliary tree dilatation. No bowel injury or significant finding. No free air, free fluid or abnorma l stranding. No hernia, mass or bulky lymphadenopathy. No urinary bladder abnormality. IMPRESSION: No hemorrhage, edema or acute intracranial finding. Mild atrophy and chronic ischemic ch anges are present. Cervical spine degenerative change with no acute fracture. CT chest imaging shows proximal left humerus fracture, separately detailed, with no acute chest findi ng. No acute CT abdomen or pelvis finding.
--- NOTE | 2018-12-25 12:57 | ER ---
Nurse's Notes [facility] Name: Rosa Ag Age: 78 yrs Sex: Female : 1940 Arrival Date: 12/25/2018 Time: 11:04 Bed 4 Private MD: Diagnosis: Fall on same level from slipping, tripping and stumbling;Left proximal humerus fracture;Pain in left wrist Presentation: 12/25 11:04 Presenting complaint: Patient states: "I fell and hit my head on concrete". Denies LOC, aa5 denies use of anticoagulants. Pt c/o left arm pain. 11:04 Transition of care: patient was not received from another setting of care. Onset of aa5 symptoms was December 25, 2018. Care prior to arrival: None. 11:04 Method Of Arrival: Ambulatory aa5 11:04 Acuity: RITA 3 aa5 11:05 Mechanism of Injury: Fall from standing position. Trauma event details: Injury occurred aa5 in the [facility], Injury occurred: at home. Injury occurred: December 25, 2018. Trauma Activation: Alert Physician: ED Physician; Name: ; Notified At: ; Arrived At: Physician: General Surgeon; Name: ; Notified At: ; Arrived At: Physician: Radiology; Name: ; Notified At: ; Arrived At: Physician: Respiratory; Name: ; Notified At: ; Arrived At: Physician: Lab; Name: ; Notified At: ; Arrived At: Historical: - Allergies: 11:08 Levaquin; la1 - PMHx: 11:08 Asthma; la1 - Immunization history:: Adult Immunizations up to date. - Immunization history: Last tetanus immunization: unknown. - Social history:: Smoking status: unknown. Screenin:11 Abuse screen: Denies threats or abuse. Denies injuries from another. Tuberculosis bp screening: No symptoms or risk factors identified. Primary Survey: 11:11 NO uncontrolled hemorrhage observed. A: The patient is alert. Airway: patent, No bp supplemental oxygen in use on arrival. Breathing/Chest: Respiratory pattern: regular, Respiratory effort: spontaneous, unlabored. Circulation: Skin color: pink, Skin temperature: warm, dry. Disability Alert. Exposure/Environment: All clothing and personal items were removed. Forensic evidence collection is not deemed to be indicated at this time. Items placed in patient belonging bag. There is no evidence of uncontrolled external bleeding. Secondary Survey: 11:11 Musculoskeletal: Swelling present in left arm. bp Assessment: 11:11 General: Appears in no apparent distress. uncomfortable, Behavior is cooperative, bp appropriate for age, anxious. Pain: Complains of pain in left arm. Neuro: Level of Consciousness is awake, alert, obeys commands, Oriented to person, place, time, situation, Appropriate for age. EENT: No deficits noted. Cardiovascular: No deficits noted. Respiratory: Airway is patent Respiratory effort is even, unlabored, Respiratory pattern is regular, symmetrical. GI: No signs and/or symptoms were reported involving the gastrointestinal system. : No signs and/or symptoms were reported regarding the genitourinary system. Derm: No deficits noted. Musculoskeletal: Swelling present in left arm. 12:20 Reassessment: PT RETURNED TO ROOM FROM CT. bp Vital Signs: 11:34 BP 160 / 99; Pulse 81; Resp 16; Temp 98.4(TE); Pulse Ox 98% on R/A; la1 14:18 BP 158 / 91; Pulse 86; Resp 16; Pulse Ox 98% on R/A; la1 [place] Coma Score: 11:11 Eye Response: spontaneous(4). Verbal Response: oriented(5). Motor Response: obeys bp commands(6). Total: 15. Trauma Score (Adult): 11:11 Eye Response: spontaneous(1); Verbal Response: oriented(1); Motor Response: obeys bp commands(2); Systolic BP: > 89 mm Hg(4); Respiratory Rate: 10 to 29 per min(4); [place] Score: 15; Trauma Score: 12 14:18 Eye Response: spontaneous(1); Verbal Response: oriented(1); Motor Response: obeys la1 commands(2); Systolic BP: > 89 mm Hg(4); Respiratory Rate: 10 to 29 per min(4); [place] Score: 15; Trauma Score: 12 ED Course: 11:04 Patient arrived in ED. ss 11:04 Arm band placed on Patient placed in an exam room, on a stretcher. aa5 11:06 Ta Navas MD is Attending Physician. giancarlo 11:06 Ta Bui PA is PHCP. cp 11:09 Triage completed. aa5 11:11 Junior Messer, RN is Primary Nurse. bp 11:11 Patient has correct armband on for positive identification. Placed in gown. Bed in low bp position. Call light in reach. Side rails up X2. Adult w/ patient. 11:11 Patient maintains SpO2 saturation greater than 95% on room air. Thermoregulation: warm bp blanket given to patient. 11:59 EKG done, by ED staff, reviewed by Ta DANIEL. jb1 12:27 CT Traumagram (Head C Spine CAP wo con) In Process Unspecified. EDMS 12:45 Humerus Left XRAY In Process Unspecified. EDMS 12:45 Wrist Left (3 View) XRAY In Process Unspecified. EDMS 12:52 Cedrick Haskins MD is Referral Physician. cp 14:01 Velcro wrist splint applied to left wrist. jb1 14:47 No provider procedures requiring assistance completed. Patient did not have IV access ss during this emergency room visit. Administered Medications: 11:15 Drug: NS 0.9% 500 ml Route: IV; Rate: bolus; Site: right antecubital; bp 11:15 Drug: fentaNYL (PF) 25 mcg Route: IVP; Site: right antecubital; bp 11:28 Follow up: Response: Pain is decreased bp 11:15 Drug: Zofran 4 mg Route: IVP; Site: right antecubital; bp 11:27 Follow up: Response: No adverse reaction bp 11:27 Drug: fentaNYL (PF) 25 mcg Route: IVP; Site: right antecubital; bp 11:28 Follow up: Response: Pain is decreased bp 12:00 Drug: fentaNYL (PF) 25 mcg Route: IVP; Site: right antecubital; la1 12:43 Follow up: Response: Pain is decreased bp 12:43 Drug: fentaNYL (PF) 25 mcg Route: IVP; Site: right forearm; bp 13:10 Follow up: Response: Pain is decreased bp 14:14 Drug: [place] (7.5 mg-325 mg) 1 tabs Route: PO; la1 14:19 Follow up: Response: No adverse reaction la1 Intake: 11:11 PO: 0ml; Total: 0ml. bp Output: 11:11 Urine: 0ml; Total: 0ml. bp Outcome: 12:56 Discharge ordered by . cp 14:47 Discharged to home via wheelchair, with significant other. ss 14:47 Condition: good 14:47 Discharge instructions given to patient, family, Instructed on discharge instructions, follow up and referral plans. medication usage, Demonstrated understanding of instructions, follow-up care, medications, Prescriptions given X 1. 14:48 Patient left the ED. ss Signatures: Dispatcher [employer] EDMS Jordan Siegel jb1 Ta Navas MD MD cha Calderon, Audri, RN RN aa5 Matilde Rodgers RN RN ss Yair Everett RN RN la1 Ta Bui, PA PA Junior Strickland, RN RN bp
--- NOTE | 2018-12-25 12:57 | EDPHYS ---
Physician Documentation [facility] Name: Rosa Ag Age: 78 yrs Sex: Female : 1940 Arrival Date: 12/25/2018 Time: 11:04 Bed 4 Private MD: ED Physician Ta Navas HPI: 12/25 11:08 This 78 yrs old Female presents to ER via Unassigned with complaints of Fall cp Injury, Arm Injury. 11:08 Details of fall: The patient fell from an upright position, while walking, and struck a cp concrete surface. Onset: The symptoms/episode began/occurred just prior to arrival. Associated injuries: The patient sustained injury to the head, contusion, injury to the chest, specifically the left lateral rib area, tenderness, left arm. Historical: - Allergies: 11:08 Levaquin; la1 - PMHx: 11:08 Asthma; la1 - Immunization history:: Adult Immunizations up to date. - Immunization history: Last tetanus immunization: unknown. - Social history:: Smoking status: unknown. ROS: 11:10 Eyes: Negative for injury, pain, redness, and discharge. cp 11:10 Constitutional: Negative for body aches, chills, fever, poor PO intake. 11:10 Cardiovascular: Positive for chest pain, of the left lateral rib area, Negative for edema, palpitations. 11:10 Respiratory: Negative for shortness of breath, wheezing. 11:10 Abdomen/GI: Negative for vomiting, diarrhea, constipation. 11:10 MS/extremity: Positive for injury or acute deformity, decreased range of motion, pain, of the left arm, Negative for paresthesias. 11:10 Neuro: Negative for altered mental status, loss of consciousness, syncope, weakness. 11:10 All other systems are negative. Exam: 11:12 Constitutional: The patient appears alert, awake, non-diaphoretic, non-toxic, well cp developed, well nourished, in obvious pain, uncomfortable. 11:12 Head/face: Noted is contusion, that is superficial, of the left frontal area, Sinus tenderness, is not appreciated. 11:12 Eyes: Periorbital structures: appear normal, Pupils: equal, round, and reactive to light and accomodation, Extraocular movements: intact throughout, Conjunctiva: normal, no exudate, no injection, Lids and lashes: appear normal, bilaterally. 11:12 ENT: External ear(s): are unremarkable, Ear canal(s): are normal, clear, TM's: dullness, bilaterally, Nose: is normal, Mouth: Lips: moist, Oral mucosa: pink and intact, moist, Posterior pharynx: is normal, airway is patent, no erythema, no exudate. 11:12 Neck: C-spine: vertebral tenderness, is not appreciated, crepitus, is not appreciated. 11:12 Chest/axilla: Inspection: normal, Palpation: crepitus, is not appreciated, tenderness, that is moderate, of the left lateral rib area. 11:12 Respiratory: the patient does not display signs of respiratory distress, Respirations: labored breathing, is not present, shallow respirations, that is mild, splinting, is not noted, tachypnea, is not appreciated, Breath sounds: are clear throughout, no decreased breath sounds, no stridor, no wheezing. 11:12 Abdomen/GI: Exam negative for discomfort, distension, guarding, Inspection: abdomen appears normal. 11:12 Back: pain, is absent, ROM is normal. 11:12 Musculoskeletal/extremity: Extremities: grossly normal except: noted in the left upper arm: decreased ROM, deformity, pain, swelling, tenderness, Perfusion: the extremity is normally perfused throughout, Severe pain noted. 11:12 Neuro: Orientation: to person, place \T\ time. Mentation: is normal. 11:32 ECG was reviewed by the Attending Physician. cp Vital Signs: 11:34 BP 160 / 99; Pulse 81; Resp 16; Temp 98.4(TE); Pulse Ox 98% on R/A; la1 14:18 BP 158 / 91; Pulse 86; Resp 16; Pulse Ox 98% on R/A; la1 [place] Score: 11:11 Eye Response: spontaneous(4). Verbal Response: oriented(5). Motor Response: obeys bp commands(6). Total: 15. Trauma Score (Adult): 11:11 Eye Response: spontaneous(1); Verbal Response: oriented(1); Motor Response: obeys bp commands(2); Systolic BP: > 89 mm Hg(4); Respiratory Rate: 10 to 29 per min(4); [place] Score: 15; Trauma Score: 12 14:18 Eye Response: spontaneous(1); Verbal Response: oriented(1); Motor Response: obeys la1 commands(2); Systolic BP: > 89 mm Hg(4); Respiratory Rate: 10 to 29 per min(4); [place] Score: 15; Trauma Score: 12 Procedures: 14:00 Splinting: Splint applied to left shoulder using shoulder immobilizer. applied by cp nurse. Examined by me, post splint application: neurovascular intact, Patient tolerated well. 14:00 Splinting: Splint applied to left wrist using wrist splint, applied by nurse. Examined cp by me, post splint application: neurovascular intact, Patient tolerated well. MDM: 11:06 Patient medically screened. [facility] 11:18 Differential diagnosis: closed head injury, contusion, fracture, laceration, multiple cp trauma. 12:55 Data reviewed: vital signs, nurses notes, lab test result(s), EKG, radiologic studies, cp CT scan, plain films, I have discussed the patient's presentation/case with the attending Emergency Department Physician; and as a result, I will discharge patient. 12:55 Test interpretation: by ED physician or midlevel provider: ECG, plain radiologic cp studies. Counseling: I had a detailed discussion with the patient and/or guardian regarding: the historical points, exam findings, and any diagnostic results supporting the discharge/admit diagnosis, lab results, radiology results, the need for outpatient follow up, a orthopedic surgeon, to return to the emergency department if symptoms worsen or persist or if there are any questions or concerns that arise at home. Response to treatment: the patient's symptoms have markedly improved after treatment, VSS. Pain improved with meds. Discussed results of radiology studies. Will discharge to home and patient to f/u with ortho. 12/25 11:11 Order name: Basic Metabolic Panel; Complete Time: 12:38 [facility] 12/25 12:38 Interpretation: Normal except: GFR 73. 12/25 11:11 Order name: CBC with Diff; Complete Time: 11:57 [facility] 12/25 11:58 Interpretation: Reviewed. 12/25 11:11 Order name: Creatinine for Radiology; Complete Time: 12:38 [facility] 12/25 11:11 Order name: Type And Screen [facility] 12/25 11:11 Order name: LFT's; Complete Time: 12:38 [facility] 12/25 12:45 Interpretation: Normal except: GLOB 3.9. cp 12/25 12:20 Order name: ABO/RH no charge EDMS 12/25 11:11 Order name: CT Traumagram (Head C Spine CAP wo con); Complete Time: 12:41 giancarlo 12/25 11:11 Order name: Humerus Left XRAY [facility] 12/25 11:11 Order name: Wrist Left (3 View) XRAY [facility] 12/25 11:11 Order name: Labs collected and sent; Complete Time: 11:27 giancarlo 12/25 11:11 Order name: Ice pack; Complete Time: 11:20 giancarlo 12/25 11:18 Order name: EKG; Complete Time: 11:18 cp 12/25 11:18 Order name: EKG - Nurse/Tech; Complete Time: 11:27 cp 12/25 12:48 Order name: Shoulder Immobilizer; Complete Time: 13:29 cp 12/25 12:48 Order name: Wrist Splint; Complete Time: 13:29 cp EC:32 Rate is 71 beats/min. Rhythm is regular. AR interval is normal. QRS interval is normal. cp QT interval is normal. Interpreted by me. Reviewed by me. Administered Medications: 11:15 Drug: NS 0.9% 500 ml Route: IV; Rate: bolus; Site: right antecubital; bp 11:15 Drug: fentaNYL (PF) 25 mcg Route: IVP; Site: right antecubital; bp 11:28 Follow up: Response: Pain is decreased bp 11:15 Drug: Zofran 4 mg Route: IVP; Site: right antecubital; bp 11:27 Follow up: Response: No adverse reaction bp 11:27 Drug: fentaNYL (PF) 25 mcg Route: IVP; Site: right antecubital; bp 11:28 Follow up: Response: Pain is decreased bp 12:00 Drug: fentaNYL (PF) 25 mcg Route: IVP; Site: right antecubital; la1 12:43 Follow up: Response: Pain is decreased bp 12:43 Drug: fentaNYL (PF) 25 mcg Route: IVP; Site: right forearm; bp 13:10 Follow up: Response: Pain is decreased bp 14:14 Drug: Levant (7.5 mg-325 mg) 1 tabs Route: PO; la1 14:19 Follow up: Response: No adverse reaction la1 Disposition: 15:00 Chart complete. cp 12/26 08:56 Co-signature as Attending Physician, Ta Navas MD I agree with the assessment and [facility] plan of care. Disposition: 12/25/18 12:56 Discharged to Home. Impression: Fall on same level from slipping, tripping and stumbling, Left proximal humerus fracture, Pain in left wrist. - Condition is Stable. - Discharge Instructions: Humerus Fracture Treated With Immobilization, Wrist Pain. - Prescriptions for Tylenol- Codeine #3 300-30 mg Oral Tablet - take 2 tablets by ORAL route every 6 hours As needed; 20 tablet. - Medication Reconciliation Form, Thank You Letter, Antibiotic Education, Prescription Opioid Use form. - Follow up: Cedrick Haskins MD; When: 1 - 2 days; Reason: left proximal humerus fracture. - Problem is new. - Symptoms have improved. Signatures: Dispatcher [employer] EDMS Ta Navas MD MD cha Smirch, Shelby, RN RN Yair Everett RN RN la1 Ta Bui PA PA Junior Messer, RN RN bp Corrections: (The following items were deleted from the chart) 12/25 14:48 12:56 12/25/2018 12:56 Discharged to Home. Impression: Fall on same level from ss slipping, tripping and stumbling; Left proximal humerus fracture; Pain in left wrist. Condition is Stable. Forms are Medication Reconciliation Form, Thank You Letter, Antibiotic Education, Prescription Opioid Use. Follow up: Cedrick Haskins; When: 1 - 2 days; Reason: left proximal humerus fracture. Problem is new. Symptoms have improved. cp
--- NOTE | 2018-12-25 13:38 | RAD REPORT ---
EXAM DESCRIPTION: RAD - Wrist Left 3 View - 12/25/2018 12:45 pm CLINICAL HISTORY: Fall, left wrist pain COMPARISON: Left wrist December 2017 FINDINGS: An oblique fracture is present through the radial styloid without distraction or angulatio n. No other distal left radius acute fracture changes are present. There is remodeling of the distal radius from fracture 1 year earlier. Ulna styloid remains ununited. Bones are osteopenic and there de generative changes present primarily at the trapezium first metacarpal articulation. No foreign body or other soft tissue abnormality. IMPRESSION: Nondisplaced radial styloid fracture. Degenerative change and old fracture remodeling change. No other acute findings.
--- NOTE | 2018-12-25 13:39 | RAD REPORT ---
EXAM DESCRIPTION: RAD - Humerus Left - 12/25/2018 12:45 pm CLINICAL HISTORY: Fall, left shoulder pain COMPARISON: None. FINDINGS: Oblique fracture traverses the greater tuberosity. Transverse fracture of the surgical nec k is also present with impaction of approximately 8 mm. No pathologic bone process. AC joint degenerative changes are present, mild in degree. Acromial humeral joint space is normal. T here is no dislocation or periosteal reaction noted. No foreign body or other soft tissue abnormality . IMPRESSION: Left humerus oblique fracture through the greater tuberosity with minimal displacement. Transverse fracture of the left humerus surgical neck with impaction.
[2018-12-25] MEDS ORDERED: HYDROCODONE/APAP 7.5/325 MG TAB ONE (14:21)
[2018-12-25 14:53] VITALS: TEMP 98.4; O2SAT 98
[2018-12-25 14:54] VITALS: BP 158/91
--- NOTE | 2018-12-26 05:54 | EKG ---
Test Date: 2018-12-25 Test Time: 11:29:58 Risk Compliance Manager: MIKY MEASUREMENT RESULTS: Intervals: Rate: 71 MD: 162 QRSD: 66 QT: 410 QTc: 445 [place]: P: MD: 162 QRS: 28 T: 48 INTERPRETIVE STATEMENTS: Normal sinus rhythm Normal ECG Compared to ECG 01/10/2018 13:25:12 No significant changes Electronically Signed On 12-26-18 05:53:21 CDT by Royce Plummer
== END 2018-12-25 14:48 | disposition home or self-care (01) ==
LOC: ER 11:01
PROC: 2W3DX1Z Immobilization of Left Lower Arm using Splint (ICD-10-PCS; principal; 2018-12-25)
DX: S42.202A Unspecified fracture of upper end of left humerus, initial encounter for closed fracture (principal); W01.0XXA Fall on same level from slipping, tripping and stumbling without subsequent striking against object, initial encounter; Y93.01 Activity, walking, marching and hiking; Y92.9 Unspecified place or not applicable; Z88.1 Allergy status to other antibiotic agents
CPT/HCPCS: 93005; 85025; 80048; 36415; 86900; 86850; 86901; 80076; 70450; 71250; 72125; 73060; 73110; 99284; 29125; J3010; J2405

== ENCOUNTER 2024-01-11 16:56 | Emergency (ER) | payer OTHER ==
[2024-01-11] MEDS ORDERED: CEFTRIAXONE 1000 MG/VIAL ONE (18:39)
[2024-01-11] MEDS ORDERED: IPRATROPIUM BROM 0.5MG/2.5ML ONE (18:40)
[2024-01-11] MEDS ORDERED: LABETALOL 20 MG/4ML SYRINGE IV ONE (18:40)
[2024-01-11] MEDS ORDERED: METHYLPREDNISOLONE 125 MG INJ ONE (18:40)
[2024-01-11] MEDS ORDERED: NA CHLORIDE 0.9% 1,000 ML ONE (18:40)
[2024-01-11] MEDS ORDERED: AMLODIPINE 5 MG TAB ONE (18:40)
[2024-01-11] MEDS ORDERED: LEVALBUTEROL 1.25 MG/3 ML NEB ONE (18:40)
[2024-01-11 18:46] LABS: Absolute Eosinophils 0.1 K/uL (0-0.5); Absolute Lymphocytes (CBC) 1.7 K/uL (0.7-4.9); Absolute Monocytes 0.6 K/uL (0.1-1.3); Basophils % 0.7 % (0-1.3); Eosinophils % 1.4 % (0-4.4); Hematocrit 34.3 % (36.0-45.0); Hemoglobin 11.6 g/dL (12.0-15.0); Lymphocytes % 25.9 % (15.3-44.8); MCH 30.6 pg (27.0-35.0); MCV 90.2 fL (80-100); MPV 7.5 fL (7.6-11.3); Monocytes % 9.7 % (3.3-12.3); Neutrophils % 62.3 % (41.7-73.7); Nucleated Red Blood Cells % 0.1 % (0-0); Platelets 337 thou/uL (152-406); Red Cell Distribution Width 14.8 % (12.1-15.2)
[2024-01-11 18:53] LABS: PT Prothrombin Time 10.9 SECONDS (9.5-12.5); Protime INR 0.99
[2024-01-11 19:03] LABS: SARS-CoV-2 Antigen CONTROL BLUE LINE VIS/BG OK; SARS-CoV-2 Antigen Rapid Res Negative (Negative)
[2024-01-11 19:06] LABS: ALT/SGPT 23 U/L (13-56); AST/SGOT 21 U/L (15-37); Albumin 3.6 g/dL (3.4-5.0); Albumin/Globulin Ratio 0.9 (1.1-1.8); Alkaline Phosphatase 85 U/L (45-117); Anion Gap 7.7 mEq/L (5.0-15.0); BUN Blood Urea Nitrogen 16 mg/dL (7-18); Bicarbonate 27 mEq/L (21-32); Bilirubin Total 0.4 mg/dL (0.2-1.0); Globulin 3.8 g/dL (2.3-3.5); Glomerular Filtration Rate 79 ml/min (=/>90); Glucose Level 102 mg/dL (74-106); Lipase 41 U/L (13-75); NT PRO-BNP 231 pg/mL (<450); Potassium 3.7 mEq/L (3.5-5.1); Protein, Total 7.4 g/dL (6.4-8.2); Sodium Level 137 mEq/L (136-145); Troponin High Sensitivity 9.5 pg/mL (<58.9)
--- NOTE | 2024-01-11 19:20 | RAD REPORT ---
EXAM DESCRIPTION: RAD - Chest Single View - 01/11/2024 7:07 pm CLINICAL HISTORY: COUGH Chest pain. COMPARISON: Chest Pa And Lat (2 Views) dated 01/10/2018; Chest Pa And Lat (2 Views) dated 08/16/2017; Chest Pa And Lat (2 Views) dated 06/01/2016; CHEST PA AND LAT 2 VIEW dated 12/25/2014 FINDINGS: Portable technique limits examination quality. The lungs are emphysematous but grossly clear. The heart is mildly prominent in size. Moderate dextro scoliosis of the thoracic spine.Calcified breast implants noted. IMPRESSION: No acute intrathoracic process suspected.
[2024-01-11 19:21] LABS: Bilirubin Direct < 0.1 mg/dL (0-0.2); Bilirubin Indirect, Calculated ND mg/dL (0.2-0.8)
--- NOTE | 2024-01-11 19:32 | RAD REPORT ---
EXAM DESCRIPTION: CT - Head C Spine Cap Wo Con - 01/11/2024 7:10 pm CLINICAL HISTORY: Trauma, head and neck injury. Chest, abdomen and pelvis pain. Pain;Headache COMPARISON: No comparisons TECHNIQUE: CT head without contrast. CT cervical spine without contrast with coronal and sagittal reformatted images. CT chest, abdomen and pelvis without contrast with coronal and sagittal reformatted images of the spi ne. All CT scans are performed using dose optimization technique as appropriate and may include automated exposure control or mA/KV adjustment according to patient size. FINDINGS: CT HEAD WITHOUT CONTRAST: No intracranial hemorrhage, hydrocephalus or extra-axial fluid collection. Mild generalized brain atr ophy is present with mild periventricular and deep white matter chronic microvascular ischemic change s. No areas of brain edema or midline shift. The paranasal sinuses and mastoids are clear. The calvarium is intact. CT CERVICAL SPINE WITHOUT CONTRAST: No fracture or subluxation. [id number] lower cervical degenerative changes. The prevertebral so ft tissues are normal in thickness. CT CHEST, ABDOMEN, PELVIS WITHOUT CONTRAST: NOTE: Lack of contrast is a significant limitation in the assessment of trauma related findings. Spec ifically, solid organ, vascular and bowel evaluation is significantly limited. The lungs are clear.Small to moderate hiatal hernia.No pneumothorax or pericardial/pleural fluid. No evidence of intra-abdominal visceral injury, free fluid or free air is seen within the above detai led limitations. Cholecystectomy clips. Mild sigmoid diverticulosis without diverticulitis. No concerning pelvic findings. No fractures. Moderate lumbar degenerative changes. IMPRESSION: No acute process is seen.
[2024-01-11 20:49] LABS: Specific Gravity 1.009 (1.005-1.030); Sqamous Epithelial <5 /HPF (None Seen); Urine Bacteria None Seen /HPF (<20); Urine Bilirubin NEGATIVE (Negative); Urine Blood Negative (Negative); Urine Clarity Turbid (Clear); Urine Color Colorless (Yellow); Urine Culture Reflex Order REFLEXED; Urine Glucose NEGATIVE (Negative); Urine Ketones NEGATIVE (Negative); Urine Microscopic Reflex YN ORDER UMIC; Urine Mucus Slight /HPF (None Seen); Urine Nitrite NEGATIVE (Negative); Urine Protein NEGATIVE (Negative); Urine RBC <5 /HPF (None Seen); Urine Urobilinogen Normal (Normal)
--- NOTE | 2024-01-11 20:52 | ER ---
Nurse's Notes [facility] Name: Rosa Ag Age: 83 yrs Sex: Female : 1940 Arrival Date: 01/11/2024 Time: 16:56 Bed 17 Private MD: Diagnosis: Headache;Essential (primary) hypertension;Cough;Acute upper respiratory infection, unspecified;UTI/ Urinary tract infection, site not specified Presentation: 01/10 17:09 Chief complaint: Patient states: pt states she hasn't been feeling well off and on the as6 last few weeks but today it got worse. Coronavirus screen: At this time, the client does not indicate any symptoms associated with coronavirus-19. Ebola Screen: No symptoms or risks identified at this time. Initial Sepsis Screen: Does the patient meet any 2 criteria? No. Patient's initial sepsis screen is negative. Does the patient have a suspected source of infection? No. Patient's initial sepsis screen is negative. Risk Assessment: Do you want to hurt yourself or someone else? Patient reports no desire to harm self or others. Onset of symptoms was January 11, 2024. 17:09 Method Of Arrival: Ambulatory as6 17:09 Acuity: RITA 3 as6 Historical: - Allergies: 17:10 Levaquin; as6 - PMHx: 17:10 Asthma; as6 - PSHx: 17:10 arm (Asthma); as6 17:11 Cholecystectomy; as6 - Immunization history:: Adult Immunizations up to date. - Infectious Disease History:: Denies. - Social history:: Smoking status: Patient denies any tobacco usage or history of. Screenin:00 [facility] ED Fall Risk Assessment (Adult) History of falling in the last 3 months, jj7 including since admission No falls in past 3 months (0 pts) Confusion or Disorientation No (0 pts) Intoxicated or Sedated No (0 pts) Impaired Gait No (0 pts) Mobility Assist Device Used No (0 pt) Altered Elimination No (0 pt) Score/Fall Risk Level 0 - 2 = Low Risk Oriented to surroundings, Maintained a safe environment, Educated pt \T\ family on fall prevention, incl call for assistance when getting out of bed. Abuse screen: Denies threats or abuse. Nutritional screening: No deficits noted. Tuberculosis screening: No symptoms or risk factors identified. Assessment: 17:15 General: Appears in no apparent distress. uncomfortable, Behavior is calm, cooperative. rs5 Pain: Complains of pain in head Pain currently is 3 out of 10 on a pain scale. Quality of pain is described as aching, Is continuous. Neuro: Level of Consciousness is awake, alert, obeys commands, Oriented to person, place, time, situation. Cardiovascular: Patient's skin is warm and dry. Rhythm is regular. Cardiovascular: Patient's skin is warm and dry. Rhythm is regular. Respiratory: Reports cough that is Airway is patent Respiratory effort is even, unlabored, Respiratory pattern is regular, symmetrical. GI: Abdomen is round non-distended, Reports mild nausea. 17:15 : No signs and/or symptoms were reported regarding the genitourinary system. EENT: No rs5 signs and/or symptoms were reported regarding the EENT system. Derm: Skin is intact, Skin is pink, warm \T\ dry. Musculoskeletal: Range of motion: intact in all extremities. 18:22 Reassessment: Patient and/or family updated on plan of care and expected duration. Pain rs5 level reassessed. Patient is alert, oriented x 3, equal unlabored respirations, skin warm/dry/pink. 19:00 General: Appears in no apparent distress. comfortable, Behavior is calm, cooperative, jj7 appropriate for age. Respiratory: Reports cough that is productive. 21:11 Reassessment: PT HAS BEEN DISCHARGED. STATES THEY WOULD LIKE TO SPEAK WITH MD TO GO j OVER ALL LABS AND DX. DR ESPINAL INFORMED. SAYS TO INFORM PT. HE WILL SPEAK WITH THEM IN 20 MINUTES. PT AND FAMILY INFORMED. WAITING IN ROOM FOR MD. 21:30 Reassessment: MD ESPINAL AT BEDSIDE SPEAKING WITH PT AND FAMILY. jj7 Vital Signs: 17:09 BP 190 / 93; Pulse 87; Resp 18 S; Temp 98.3(TE); Pulse Ox 96% on R/A; Weight 54.43 kg as6 (R); Height 5 ft. 2 in. (R); Pain 5/10; 19:08 BP 183 / 85; Pulse 72; Resp 17; Pulse Ox 97% ; jj7 20:00 BP 152 / 59; Pulse 74; Resp 16; Pulse Ox 100% ; jj7 20:56 BP 152 / 60; Pulse 77; Resp 19; Temp 98.9; Pulse Ox 96% ; jj7 21:22 BP 156 / 88; Pulse 72; Resp 17; Pulse Ox 99% ; Pain 0/10; jj7 17:09 Body Mass Index 21.95 (54.43 kg, 157.48 cm) as6 17:09 Pain Scale: Adult as6 21:22 Pain Scale: Adult jj7 [place] Coma Score: 21:26 Eye Response: spontaneous(4). Motor Response: obeys commands(6). Verbal Response: giancarlo oriented(5). Total: 15. ED Course: 16:58 Patient arrived in ED. im 17:10 Triage completed. as6 17:11 Arm band placed on. as6 18:06 Ta Espinal MD is Attending Physician. [facility] 18:08 Cruzito Lundberg, ZENOBIA is Primary Nurse. rs5 19:00 Patient has correct armband on for positive identification. Bed in low position. Call jj7 light in reach. Side rails up X 1. Adult w/ patient. Provided Education on: USE OF CALL CORONEL. 19:00 No provider procedures requiring assistance completed. jj7 19:00 Inserted saline lock: 20 gauge in left forearm, using aseptic technique. ,using aseptic jj7 technique. INSERTED BY ER NURSE PARTS REMOVER BY THIS NURSE. 19:09 XRAY Chest (1 view) In Process Unspecified. EDMS 19:11 CT Traumagram (Head C Spine CAP wo con) In Process Unspecified. EDMS 21:01 Urine Culture Sent. jj7 21:11 IV discontinued, intact, bleeding controlled, No redness/swelling at site. Pressure jj7 dressing applied. Administered Medications: 18:54 Drug: Levalbuterol Inhalation 1.25 mg Inhalation once Route: Inhalation; rs5 18:54 Drug: Ipratropium Inhalation Aerosol 0.5 mg Inhalation once Route: Inhalation; rs5 18:54 Drug: Norvasc PO 5 mg PO once Route: PO; rs5 20:00 Follow up: Response: Blood pressure is lowered jj7 18:54 Drug: Labetalol IV 10 mg IV at per protocol once Route: IV; Rate: per protocol; Site: rs5 right antecubital; 19:00 Follow up: IV Status: Completed infusion jj7 18:55 Drug: NS 0.9% IV 1000 ml IV at 1 bolus Per protocol; 1000 mL bolus Route: IV; Rate: 1 rs5 bolus; Site: right antecubital; 18:55 Drug: Rocephin IV 1 grams IV at per protocol once; Given slow IV push per pharmacy rs5 instructions Route: IV; Rate: per protocol; Site: right antecubital; 19:00 Follow up: IV Status: Completed infusion jj7 18:55 Drug: MethylPrednisoLONE IVP 125 mg IVP once Route: IVP; Site: right antecubital; rs5 21:11 Follow up: Response: Marked relief of symptoms jj7 21:06 Drug: Amoxicillin-Clavulanate PO 875 mg PO once Route: PO; jj7 21:26 Follow up: Response: No adverse reaction j7 Medication: 19:00 VIS not applicable for this client. j7 Outcome: 20:52 Discharge ordered by MD. mondragon 21:36 Patient left the ED. 7 Signatures: Dispatcher [employer] EDMS Ta Espinal MD MD cha Slawson, Ashby, RN RN as6 Edvin Saini RN RN jj7 Cruzito Lundberg RN RN rs5 Glory Tanner Corrections: (The following items were deleted from the chart) 21:01 20:56 BP 152 / 60; Pulse 77bpm; Resp 19bpm; Pulse Ox 96%; jj7 jj7
--- NOTE | 2024-01-11 20:52 | EDPHYS ---
Physician Documentation [facility] Name: Rosa Ag Age: 83 yrs Sex: Female : 1940 Arrival Date: 01/11/2024 Time: 16:56 Bed 17 Private MD: ED Physician Ta Navas HPI: 01/10 18:16 This 83 yrs old Female presents to ER via Ambulatory with complaints of giancarlo Headache, High Blood Pressure, Flu Symptoms, Nausea. 18:16 The patient complains of pain to the top of head, forehead, left frontal area, left giancarlo side of the back of head, right frontal area, right side of the back of head and right occipital area. The patient describes the headache as aching. Onset: The symptoms/episode began/occurred 3 day(s) ago. Associated signs and symptoms: Pertinent positives: nausea. Severity of symptoms: At its worst the pain was mild, moderate. Headache History: The patient has had previous headaches and this one is similar to previous episodes. Historical: - Allergies: 17:10 Levaquin; as6 - PMHx: 17:10 Asthma; as6 - PSHx: 17:10 arm (Asthma); as6 17:11 Cholecystectomy; as6 - Immunization history:: Adult Immunizations up to date. - Infectious Disease History:: Denies. - Social history:: Smoking status: Patient denies any tobacco usage or history of. ROS: 18:17 Constitutional: Negative for fever, chills, and weight loss, Eyes: Negative for injury, giancarlo pain, redness, and discharge, ENT: Negative for injury, pain, and discharge, Neck: Negative for injury, pain, and swelling, Cardiovascular: Negative for chest pain, palpitations, and edema, Abdomen/GI: Negative for abdominal pain, nausea, vomiting, diarrhea, and constipation, Back: Negative for injury and pain, : Negative for injury, bleeding, discharge, and swelling, MS/Extremity: Negative for injury and deformity, Skin: Negative for injury, rash, and discoloration, Psych: Negative for depression, anxiety, suicide ideation, homicidal ideation, and hallucinations, Allergy/Immunology: Negative for hives, rash, and allergies, Endocrine: Negative for neck swelling, polydipsia, polyuria, polyphagia, and marked weight changes, Hematologic/Lymphatic: Negative for swollen nodes, abnormal bleeding, and unusual bruising, 18:17 Respiratory: Positive for cough, 18:17 Neuro: Positive for headache, Exam: 18:17 Constitutional: This is a well developed, well nourished patient who is awake, alert, giancarlo and in no acute distress. Head/Face: Normocephalic, atraumatic. Eyes: Pupils equal round and reactive to light, extra-ocular motions intact. Lids and lashes normal. Conjunctiva and sclera are non-icteric and not injected. Cornea within normal limits. Periorbital areas with no swelling, redness, or edema. ENT: Nares patent. No nasal discharge, no septal abnormalities noted. Tympanic membranes are normal and external auditory canals are clear. Oropharynx with no redness, swelling, or masses, exudates, or evidence of obstruction, uvula midline. Mucous membranes moist. Neck: Trachea midline, no thyromegaly or masses palpated, and no cervical lymphadenopathy. Supple, full range of motion without nuchal rigidity, or vertebral point tenderness. No Meningismus. Chest/axilla: Normal chest wall appearance and motion. Nontender with no deformity. No lesions are appreciated. Cardiovascular: Regular rate and rhythm with a normal S1 and S2. No gallops, murmurs, or rubs. Normal PMI, no JVD. No pulse deficits. Respiratory: Lungs have equal breath sounds bilaterally, clear to auscultation and percussion. No rales, rhonchi or wheezes noted. No increased work of breathing, no retractions or nasal flaring. Abdomen/GI: Soft, non-tender, with normal bowel sounds. No distension or tympany. No guarding or rebound. No evidence of tenderness throughout. Back: No spinal tenderness. No costovertebral tenderness. Full range of motion. Female : Normal external genitalia. Skin: Warm, dry with normal turgor. Normal color with no rashes, no lesions, and no evidence of cellulitis. MS/ Extremity: Pulses equal, no cyanosis. Neurovascular intact. Full, normal range of motion. Neuro: Awake and alert, GCS 15, oriented to person, place, time, and situation. Cranial nerves II-XII grossly intact. Motor strength 5/5 in all extremities. Sensory grossly intact. Cerebellar exam normal. Normal gait. Psych: Awake, alert, with orientation to person, place and time. Behavior, mood, and affect are within normal limits. 18:17 Neck: External neck: is normal, no acute changes, Thyroid: appears normal, Trachea: is midline with no obvious abnormalities, ROM/movement: is normal, no acute changes, Lymph nodes: no appreciated lymphadenopathy, Vital Signs: 17:09 BP 190 / 93; Pulse 87; Resp 18 S; Temp 98.3(TE); Pulse Ox 96% on R/A; Weight 54.43 kg as6 (R); Height 5 ft. 2 in. (R); Pain 5/10; 19:08 BP 183 / 85; Pulse 72; Resp 17; Pulse Ox 97% ; jj7 20:00 BP 152 / 59; Pulse 74; Resp 16; Pulse Ox 100% ; jj7 20:56 BP 152 / 60; Pulse 77; Resp 19; Temp 98.9; Pulse Ox 96% ; jj7 21:22 BP 156 / 88; Pulse 72; Resp 17; Pulse Ox 99% ; Pain 0/10; jj7 17:09 Body Mass Index 21.95 (54.43 kg, 157.48 cm) as6 17:09 Pain Scale: Adult as6 21:22 Pain Scale: Adult jj7 Mary Coma Score: 21:26 Eye Response: spontaneous(4). Motor Response: obeys commands(6). Verbal Response: giancarlo oriented(5). Total: 15. MDM: 18:06 Patient medically screened. giancarlo 21:26 Differential diagnosis: epidural hematoma, hyponatremia, meningitis, migraine, giancarlo sinusitis, tension headache, uremia. Differential Diagnosis altered mental status, sepsis, flu, Obstructed Airway Bronchitis Influenza Upper Respiratory Infection Sinusitis Pharyngitis Otitis Media Asthma Exacerbation Viral Syndrome Pneumonia. Data reviewed: vital signs, nurses notes, lab test result(s), EKG, radiologic studies, CT scan, plain films. Consideration of Admission/Observation Escalation of care including admission/observation considered. I considered the following discharge prescriptions or medication management in the emergency department Medications were administered in the Emergency Department. See MAR. Independent interpretation of the following test(s) in the Emergency Department EKG: See my EKG interpretation above. Test considered but Not performed: Ultrasound no abd usg. Care significantly affected by the following chronic conditions: asthma. Counseling: I had a detailed discussion with the patient and/or guardian regarding the historical points, exam findings, and any diagnostic results supporting the discharge/admit diagnosis, the presence of at least one elevated blood pressure reading (>120/80) during this emergency department visit, lab results, radiology results, the need for outpatient follow up, for definitive care, a family practitioner. 01/10 18:16 Order name: Basic Metabolic Panel; Complete Time: 20:40 [facility] 01/10 18:16 Order name: CBC with Diff; Complete Time: 20:40 [facility] 01/10 18:16 Order name: LFT's; Complete Time: 20:40 [facility] 01/10 18:16 Order name: Magnesium; Complete Time: 20:40 [facility] 01/10 18:16 Order name: NT PRO-BNP; Complete Time: 20:40 [facility] 01/10 18:16 Order name: PT-INR; Complete Time: 20:40 [facility] 01/10 18:16 Order name: Troponin HS; Complete Time: 20:40 [facility] 01/10 18:16 Order name: Blood Culture Adult (2) [facility] 01/10 18:16 Order name: Lactate w/ 2H reflex if indic.; Complete Time: 20:40 [facility] 01/10 18:16 Order name: Urinalysis w/ reflexes; Complete Time: 21:26 giancarlo 01/10 18:16 Order name: Lipase; Complete Time: 20:40 [facility] 01/10 18:16 Order name: Flu; Complete Time: 20:40 [facility] 01/10 18:16 Order name: SARS RAPID; Complete Time: 20:40 [facility] 01/10 20:51 Order name: Urine Culture EDMN 01/10 18:16 Order name: XRAY Chest (1 view); Complete Time: 20:40 [facility] 01/10 18:16 Order name: CT Traumagram (Head C Spine CAP wo con); Complete Time: 20:40 [facility] 01/10 18:16 Order name: EKG; Complete Time: 18:16 01/10 18:16 Order name: Cardiac monitoring; Complete Time: 18:55 [facility] 01/10 18:16 Order name: EKG - Nurse/Tech; Complete Time: 21:26 01/10 18:16 Order name: IV Saline Lock; Complete Time: 18:55 [facility] 01/10 18:16 Order name: Labs collected and sent; Complete Time: 18:55 [facility] 01/10 18:16 Order name: O2 Per Protocol; Complete Time: 18:55 giancarol 01/10 18:16 Order name: O2 Sat Monitoring; Complete Time: 18:55 giancarlo 01/10 20:41 Order name: Misc. Order: get ua please; Complete Time: 21:01 giancarlo Administered Medications: 18:54 Drug: Levalbuterol Inhalation 1.25 mg Inhalation once Route: Inhalation; rs5 18:54 Drug: Ipratropium Inhalation Aerosol 0.5 mg Inhalation once Route: Inhalation; rs5 18:54 Drug: Norvasc PO 5 mg PO once Route: PO; rs5 20:00 Follow up: Response: Blood pressure is lowered jj7 18:54 Drug: Labetalol IV 10 mg IV at per protocol once Route: IV; Rate: per protocol; Site: rs5 right antecubital; 19:00 Follow up: IV Status: Completed infusion jj7 18:55 Drug: NS 0.9% IV 1000 ml IV at 1 bolus Per protocol; 1000 mL bolus Route: IV; Rate: 1 rs5 bolus; Site: right antecubital; 18:55 Drug: Rocephin IV 1 grams IV at per protocol once; Given slow IV push per pharmacy rs5 instructions Route: IV; Rate: per protocol; Site: right antecubital; 19:00 Follow up: IV Status: Completed infusion jj7 18:55 Drug: MethylPrednisoLONE IVP 125 mg IVP once Route: IVP; Site: right antecubital; rs5 21:11 Follow up: Response: Marked relief of symptoms jj7 21:06 Drug: Amoxicillin-Clavulanate PO 875 mg PO once Route: PO; jj7 21:26 Follow up: Response: No adverse reaction jj7 Disposition Summary: 01/11/24 20:52 Discharge Ordered Notes: Location: Home giancarlo Problem: new giancarlo Symptoms: have improved giancarlo Condition: Stable giancarlo Diagnosis - Headache giancarlo - Essential (primary) hypertension giancarlo - Cough giancarlo - Acute upper respiratory infection, unspecified giancarlo - UTI/ Urinary tract infection, site not specified giancarlo Followup: giancarlo - With: Private Physician - When: 2 - 3 days - Reason: Recheck today's complaints, Continuance of care, Re-evaluation by your physician Discharge Instructions: - Discharge Summary Sheet giancarlo - Hypertension, Adult giancarlo - Upper Respiratory Infection, Adult giancarlo - Cool Mist Vaporizer giancarlo - Upper Respiratory Infection, Adult, [id number] giancarlo - Hypertension, Adult, [id number] giancarlo - How to Take Your Blood Pressure, [id number] giancarlo - Managing Your Hypertension [facility] Forms: - Medication Reconciliation Form giancarlo - Antibiotic Education giancarlo - Prescription Opioid Use giancarlo - Patient Portal Instructions [facility] - Leadership Thank You Letter [facility] Prescriptions: - albuterol sulfate 90 mcg/actuation Inhalation HFA Aerosol Inhaler - inhale 2 puff INHALATION route every 4 to 6 hours; 1 unit; Refills: 0, Product [facility] Selection Permitted - Augmentin 875-125 mg Oral tablet - take 1 tablet ORAL route every 12 hours for 7 days; 14 tablet; Refills: 0, [facility] Product Selection Permitted - Norvasc 5 mg Oral Tablet - take 1 tablet ORAL route once daily; 20 tablet; Refills: 0, Product Selection [facility] Permitted - Tessalon Perles 100 mg Oral capsule - take 2 capsule ORAL route every 8 hours As needed; 30 capsule; Refills: 0, [facility] Product Selection Permitted - Medrol (Nicolas) 4 mg Oral Tablets, Dose Pack - take 1 tablet ORAL route as directed - follow package instructions; 1 packet; [facility] Refills: 0, Product Selection Permitted Signatures: Dispatcher [employer] EDMS Ta Navas MD MD cha Slawson, Ashby RN RN as6 Edvin Saini RN RN jj7 Cruzito Lundberg RN RN rs5 Corrections: (The following items were deleted from the chart) 18:16 18:16 BASIC METABOLIC PANEL+C.LAB.BRZ ordered. EDMS EDMS 18:16 18:16 CBC+H.LAB.BRZ ordered. EDMS EDMS 18:16 18:16 HEPATIC FUNCTION+C.LAB.BRZ ordered. EDMS EDMS 18:16 18:16 MAGNESIUM+C.LAB.BRZ ordered. EDMS EDMS 18:16 18:16 PROBNP+C.LAB.BRZ ordered. EDMS EDMS 18:16 18:16 PROTIME (+INR)+COAG.LAB.BRZ ordered. EDMS EDMS 18:16 18:16 Troponin High Sensitivity+C.LAB.BRZ ordered. EDMS EDMS 18:16 18:16 BLOOD CULTURE*+BA.LAB.BRZ ordered. EDMS EDMS 18:16 18:16 LACTATE+C.LAB.BRZ ordered. EDMS EDMS 18:16 18:16 Urinalysis+U.LAB.BRZ ordered. EDMS EDMS 18:16 18:16 LIPASE+C.LAB.BRZ ordered. EDMS EDMS 18:16 18:16 Influenza Screen (A \T\ B)+BA.LAB.BRZ ordered. EDMS EDMS 18:16 18:16 SARS-COV-2 Antigen Rapid+I.LAB.BRZ ordered. EDMS EDMS
[2024-01-11] MEDS ORDERED: AMOX/K CLAV 875 MG TAB ONE (21:03)
[2024-01-11 21:45] VITALS: TEMP 98.9
[2024-01-11 22:15] VITALS: BP 156/88; O2SAT 99
--- NOTE | 2024-01-12 13:07 | EKG ---
Test Date: 2024-01-11 Test Time: 20:27:39 Outpatient Dietitian: ANDRZEJ MEASUREMENT RESULTS: Intervals: Rate: 74 MA: 152 QRSD: 78 QT: 384 QTc: 426 [place]: P: 61 MA: 152 QRS: 55 T: 81 INTERPRETIVE STATEMENTS: Normal sinus rhythm ST abnormality, possible digitalis effect Abnormal ECG Compared to ECG 12/25/2018 11:29:58 ST (T wave) deviation now present Electronically Signed On 01-12-24 13:05:29 CDT by Gerardo Hamlin
== END 2024-01-11 21:36 | disposition home or self-care (01) ==
LOC: ER 16:56
DX: R51.9 Headache, unspecified (principal); I10 Essential (primary) hypertension; J06.9 Acute upper respiratory infection, unspecified; N39.0 Urinary tract infection, site not specified; R05.9 Cough, unspecified; Z11.52 Encounter for screening for COVID-19; Z88.1 Allergy status to other antibiotic agents
CPT/HCPCS: 93005; 87040 ×2; 87088; 85025; 81001; 87086; 80048; 36415; 83735; 85610; 80076; 83605; 84484; 83690; 83880; 87804 ×2; 70450; 71250; 72125; 71045; 87811; J7614; J7644; J2919; J7030; J0696; 96374; 96375; 99285

== ENCOUNTER 2024-12-11 09:07 | Emergency (ER) | payer OTHER ==
[2024-12-11] MEDS ORDERED: NA CHLORIDE 0.9% 500 ML ONE (09:39)
[2024-12-11 09:45] LABS: Absolute Eosinophils 0.1 K/uL (0-0.5); Absolute Lymphocytes (CBC) 1.5 K/uL (0.7-4.9); Absolute Monocytes 0.7 K/uL (0.1-1.3); Absolute Neutrophil 4.4 K/uL (1.8-8.0); Basophils % 0.6 % (0-1.3); Eosinophils % 1.8 % (0-4.4); Hematocrit 39.5 % (36.0-45.0); Hemoglobin 13.3 g/dL (12.0-15.0); Lymphocytes % 22.7 % (15.3-44.8); MCH 30.5 pg (27.0-35.0); MCHC 33.5 g/dL (32.0-36.0); MCV 91.1 fL (80-100); Monocytes % 9.9 % (3.3-12.3); Platelets 375 thou/uL (152-406); RBC Red Blood Cell Count 4.34 M/uL (3.86-4.86); Red Cell Distribution Width 13.9 % (12.1-15.2)
[2024-12-11] MEDS ORDERED: CEFTRIAXONE 1000 MG/VIAL ONE (09:57)
[2024-12-11] MEDS ORDERED: IPRATROPIUM BROM 0.5MG/2.5ML ONE (09:57)
[2024-12-11] MEDS ORDERED: LEVALBUTEROL 1.25 MG/3 ML NEB ONE (09:57)
[2024-12-11 10:07] LABS: Albumin 3.6 g/dL (3.4-5.0); Albumin/Globulin Ratio 0.9 (1.1-1.8); Anion Gap 7.4 mEq/L (5.0-15.0); Bilirubin Total 0.4 mg/dL (0.2-1.0); Globulin 4.2 g/dL (2.3-3.5); Potassium 4.4 mEq/L (3.5-5.1); Protein, Total 7.8 g/dL (6.4-8.2)
[2024-12-11 10:12] LABS: Influenza A Ag Negative; Influenza B Ag Negative; SARS-CoV-2 Antigen Rapid Res Negative (Negative)
--- NOTE | 2024-12-11 10:48 | RAD REPORT ---
Procedure: Chest Pa And Lat (2 Views) HISTORY: Cough COMPARISON: 2023 FINDINGS: The lungs appear clear of acute infiltrate. No significant pleural effusion noted. The heart is normal size.. Small hiatal hernia. Calcified breast implants. Prominent scoliosis involves the spine. Left humeral fracture.
[2024-12-11] MEDS ORDERED: AZITHROMYCIN 250 MG TAB ONE (11:10)
[2024-12-11] MEDS ORDERED: dexAMETHasone 10 MG/ML VIAL ONE (11:10)
--- NOTE | 2024-12-11 11:21 | ER ---
Nurse's Notes [facility] Name: Rosa Ag Age: 84 yrs Sex: Female : 1940 Arrival Date: 12/11/2024 Time: 09:07 Bed 20 Private MD: Diagnosis: Cough;Acute upper respiratory infection, unspecified;Diarrhea, unspecified;UTI/ Urinary tract infection, site not specified Presentation: 12/11 09:27 Chief complaint: Patient states: Cough and diarrhea continues after 9 days of flu-like ll1 symptoms and finishing her Paxlovid. Coronavirus screen: Client denies travel out of the [place] in the last 14 days. cough unrelated to allergies, diarrhea, muscle pain, Client presents with at least one sign or symptom that may indicate coronavirus-19. Standard/surgical mask placed on the client. Ebola Screen: Patient denies travel to an Ebola-affected area in the 21 days before illness onset. Initial Sepsis Screen: Does the patient meet any 2 criteria? No. Patient's initial sepsis screen is negative. Does the patient have a suspected source of infection? No. Patient's initial sepsis screen is negative. Risk Assessment: Do you want to hurt yourself or someone else? Patient reports no desire to harm self or others. Onset of symptoms was December 02, 2024. 09:27 Method Of Arrival: Ambulatory ll1 09:27 Acuity: RITA 3 ll1 Triage Assessment: : General: Appears uncomfortable, Behavior is calm, cooperative, appropriate for age. ll1 Pain: Complains of pain in body Quality of pain is described as aching. EENT: Reports nasal congestion pain since body aches. Neuro: Reports weakness. GI: Reports diarrhea, no appetite. Historical: - Allergies: 09:26 Levaquin; ll1 - PMHx: 09:26 Asthma; ll1 - PSHx: 09:26 arm (Asth); Cholecystectomy; ll1 - Immunization history:: Adult Immunizations up to date. - Infectious Disease History:: Denies. - Social history:: Smoking status: Patient denies any tobacco usage or history of. - Family history:: not pertinent. Screenin:49 [facility] ED Fall Risk Assessment (Adult) History of falling in the last 3 months, ll1 including since admission No falls in past 3 months (0 pts) Confusion or Disorientation No (0 pts) Intoxicated or Sedated No (0 pts) Impaired Gait No (0 pts) Mobility Assist Device Used No (0 pt) Altered Elimination No (0 pt) Score/Fall Risk Level 0 - 2 = Low Risk Maintained a safe environment, Hourly rounding (assess needs \T\ fall precautionary measures) done. Abuse screen: Denies threats or abuse. Nutritional screening: No deficits noted. Tuberculosis screening: No symptoms or risk factors identified. Assessment: 09:49 Reassessment: Dr. Navas at . ll1 Vital Signs: 09:27 BP 141 / 79; Pulse 77; Resp 17; Temp 98; Pulse Ox 97% on R/A; Weight 54.43 kg; Height 4 ll1 ft. 11 in. ; Pain 5/10; 10:45 BP 141 / 68; Pulse 86; Resp 15; Pulse Ox 99% on R/A; cm10 11:30 BP 147 / 83; Pulse 90; Resp 18; Pulse Ox 98% ; cm10 09:27 Body Mass Index 24.24 (54.43 kg, 149.86 cm) ll1 09:27 Pain Scale: Adult ll1 ED Course: 09:11 Patient arrived in ED. im 09:13 Ta Navas MD is Attending Physician. giancarlo 09:16 Arm band placed on Patient placed in an exam room, on a stretcher. ll1 09:26 Adele Mccarthy, RN is Primary Nurse. ll1 09:28 Triage completed. ll1 09:32 Radiology exam delayed due to nurse starting IV at this time. rs4 09:35 Patient has correct armband on for positive identification. Provided Education on: ER ll1 procedures and porcess. 09:35 Missed attempt(s): 22 gauge in right antecubital area. Bleeding controlled, band aid ll1 applied, catheter tip intact. 09:38 Initial lab(s) drawn, by ca, sent to lab. Inserted saline lock: 22 gauge in right ll1 wrist, using aseptic technique. Blood collected. Flushed with 10 mL NS. 09:45 COVID-19 Ag + Flu A+B Ag Sent. ll1 09:49 Warm blanket given. ll1 10:06 Primary Nurse role handed off by Adele Mccarthy, RN cm10 10:06 Damaris Brooks, ZENOBIA is Primary Nurse. cm10 10:14 Chest Pa And Lat (2 Views) XRAY In Process Unspecified. EDMS 11:20 Toby Kebede DO is Referral Physician. [facility] 12:44 No provider procedures requiring assistance completed. IV discontinued, intact, cm10 bleeding controlled, No redness/swelling at site. Pressure dressing applied. Administered Medications: 09:45 Drug: NS 0.9% IV 500 ml 500 ml IV at 1 bolus once; to be given as a bolus over 30 ll1 minutes Volume: 500 ml; Route: IV; Rate: 1 bolus; Site: right wrist; 10:03 Follow up: Response: No adverse reaction; IV Status: Completed infusion; IV Intake: ll1 500ml 10:03 Drug: Levalbuterol Inhalation 2.5 mg Inhalation once Route: Inhalation; ll1 10:03 Drug: Ipratropium Inhalation Aerosol 0.5 mg Inhalation once Route: Inhalation; ll1 10:50 Drug: Rocephin IV 1 grams IV at per protocol once; Given slow IV push per pharmacy cm10 instructions Route: IV; Rate: per protocol; Site: right wrist; 11:06 Follow up: Response: No adverse reaction; IV Status: Completed infusion; IV Intake: [id number] 11:17 Drug: Decadron - Dexamethasone IVP 10 mg IVP once Route: IVP; Site: right wrist; cm10 11:53 Follow up: Response: No adverse reaction cm10 11:17 Drug: AZITHromycin PO 500 mg PO once Route: PO; cm10 11:54 Follow up: Response: No adverse reaction cm10 12:35 Drug: Cefdinir PO Suspension 300 mg PO once Route: PO; cm10 12:44 Follow up: Response: No adverse reaction cm10 Medication: 09:50 VIS not applicable for this client. ll1 Intake: 10:03 IV: 500ml; Total: 500ml. ll1 11:06 IV: 10ml; Total: 510ml. cm10 Outcome: 11:20 Discharge ordered by . giancarlo 12:44 Discharged to home ambulatory, with family, cm10 12:44 Condition: good 12:44 Discharge instructions given to patient, Instructed on discharge instructions, follow up and referral plans. medication usage, Demonstrated understanding of instructions, follow-up care, medications, Prescriptions given X 5 12:45 Patient left the ED. cm10 Signatures: Dispatcher [employer] Ta Carmona MD MD cha Lewis, Lynsay, RN RN ll1 Sayra Saucedo rs4 Glory Tanner Clarissa, RN RN cm10
--- NOTE | 2024-12-11 11:21 | EDPHYS ---
Physician Documentation [facility] Name: Rosa Ag Age: 84 yrs Sex: Female : 1940 Arrival Date: 12/11/2024 Time: 09:07 Bed 20 Private MD: ED Physician Ta Navas HPI: 12/11 09:55 This 84 yrs old Female presents to ER via Ambulatory with complaints of Flu giancarlo Symptoms. 09:55 The patient has shortness of breath at rest, with light activity. Onset: The giancarlo symptoms/episode began/occurred 5 day(s) ago. Duration: The symptoms are continuous, and are steadily getting worse. The patient's shortness of breath is aggravated by coughing. The patient presents to the emergency department with diarrhea. Possible causes: unknown. The symptoms are aggravated by nothing. The symptoms are alleviated by nothing. Modifying factors: The symptoms are alleviated by remaining still. Historical: - Allergies: 09:26 Levaquin; ll1 - PMHx: 09:26 Asthma; ll1 - PSHx: 09:26 arm (Asth); Cholecystectomy; ll1 - Immunization history:: Adult Immunizations up to date. - Infectious Disease History:: Denies. - Social history:: Smoking status: Patient denies any tobacco usage or history of. - Family history:: not pertinent. ROS: 09:55 Constitutional: Negative for fever, chills, and weight loss, Eyes: Negative for injury, giancarlo pain, redness, and discharge, ENT: Negative for injury, pain, and discharge, Neck: Negative for injury, pain, and swelling, Cardiovascular: Negative for chest pain, palpitations, and edema, Back: Negative for injury and pain, : Negative for injury, bleeding, discharge, and swelling, MS/Extremity: Negative for injury and deformity, Skin: Negative for injury, rash, and discoloration, Neuro: Negative for headache, weakness, numbness, tingling, and seizure, Psych: Negative for depression, anxiety, suicide ideation, homicidal ideation, and hallucinations, Allergy/Immunology: Negative for hives, rash, and allergies, Endocrine: Negative for neck swelling, polydipsia, polyuria, polyphagia, and marked weight changes, Hematologic/Lymphatic: Negative for swollen nodes, abnormal bleeding, and unusual bruising, 09:55 Respiratory: Positive for cough, with no reported sputum, 09:55 Abdomen/GI: Positive for diarrhea, Exam: 09:55 Constitutional: This is a well developed, well nourished patient who is awake, alert, giancarlo and in no acute distress. Head/Face: Normocephalic, atraumatic. Eyes: Pupils equal round and reactive to light, extra-ocular motions intact. Lids and lashes normal. Conjunctiva and sclera are non-icteric and not injected. Cornea within normal limits. Periorbital areas with no swelling, redness, or edema. ENT: Nares patent. No nasal discharge, no septal abnormalities noted. Tympanic membranes are normal and external auditory canals are clear. Oropharynx with no redness, swelling, or masses, exudates, or evidence of obstruction, uvula midline. Mucous membranes moist. Neck: Trachea midline, no thyromegaly or masses palpated, and no cervical lymphadenopathy. Supple, full range of motion without nuchal rigidity, or vertebral point tenderness. No Meningismus. Chest/axilla: Normal chest wall appearance and motion. Nontender with no deformity. No lesions are appreciated. Cardiovascular: Regular rate and rhythm with a normal S1 and S2. No gallops, murmurs, or rubs. Normal PMI, no JVD. No pulse deficits. Abdomen/GI: Soft, non-tender, with normal bowel sounds. No distension or tympany. No guarding or rebound. No evidence of tenderness throughout. Back: No spinal tenderness. No costovertebral tenderness. Full range of motion. Female : Normal external genitalia. Skin: Warm, dry with normal turgor. Normal color with no rashes, no lesions, and no evidence of cellulitis. MS/ Extremity: Pulses equal, no cyanosis. Neurovascular intact. Full, normal range of motion., bilateral aka Neuro: Awake and alert, GCS 15, oriented to person, place, time, and situation. Cranial nerves II-XII grossly intact. Motor strength 5/5 in all extremities. Sensory grossly intact. Cerebellar exam normal. Normal gait. Psych: Awake, alert, with orientation to person, place and time. Behavior, mood, and affect are within normal limits. 09:55 Respiratory: the patient does not display signs of respiratory distress, Respirations: normal, Breath sounds: bronchial sounds, that are mild, decreased breath sounds, that are mild, rhonchi, that are moderate, are scattered, stridor, is not appreciated, + upper airway congestion. wheezing: expiratory Vital Signs: 09:27 BP 141 / 79; Pulse 77; Resp 17; Temp 98; Pulse Ox 97% on R/A; Weight 54.43 kg; Height 4 ll1 ft. 11 in. ; Pain 5/10; 10:45 BP 141 / 68; Pulse 86; Resp 15; Pulse Ox 99% on R/A; cm10 11:30 BP 147 / 83; Pulse 90; Resp 18; Pulse Ox 98% ; cm10 09:27 Body Mass Index 24.24 (54.43 kg, 149.86 cm) ll1 09:27 Pain Scale: Adult ll1 MDM: 09:13 Medical Screening Exam initiated giancarlo 10:56 Differential diagnosis: Anemia Anxiety Reaction asthma, Bronchitis CHF exacerbation, giancarlo Chronic Obstructive Pulmonary Disease obstructed airway, tracheal injury, bronchitis, flu, URI. Antibiotic administration: The patient is discharged and will get outpatient antibiotics, Zithromax. Immunization status: Pneumococcal vaccine: within last 5 years. Influenza vaccine: within last 5 years. Data reviewed: vital signs, nurses notes, lab test result(s), CBC, electrolytes, Flu: hepatic panel. Consideration of Admission/Observation Patient was admitted/placed on observation. I considered the following discharge prescriptions or medication management in the emergency department Medications were administered in the Emergency Department. See MAR. Independent interpretation of the following test(s) in the Emergency Department X-Ray: My interpretation is cxr. Test considered but Not performed: MRI: no mri brain. Historians other than the Patient: Family Member: family well informed. Care significantly affected by the following chronic conditions: Diabetes, Obesity. Counseling: I had a detailed discussion with the patient and/or guardian regarding the historical points, exam findings, and any diagnostic results supporting the discharge/admit diagnosis, lab results, radiology results, the need for outpatient follow up, for definitive care, a family practitioner. 12/11 09:16 Order name: CBC with Diff; Complete Time: 10:[facility] 12/11 09:16 Order name: Comprehensive Metabolic Panel; Complete Time: 10:55 [facility] 12/11 09:16 Order name: COVID-19 Ag + Flu A+B Ag; Complete Time: 10:55 [facility] 12/11 09:25 Order name: Urinalysis w/ reflexes; Complete Time: 12:24 [facility] 12/11 12:15 Order name: Urine Culture EDMS 12/11 09:16 Order name: Chest Pa And Lat (2 Views) XRAY; Complete Time: 10:55 [facility] 12/11 09:53 Order name: PO challenge; Complete Time: 09:55 [facility] 12/11 11:20 Order name: Misc. Order: urine?; Complete Time: 11:53 giancarlo Administered Medications: 09:45 Drug: NS 0.9% IV 500 ml 500 ml IV at 1 bolus once; to be given as a bolus over 30 ll1 minutes Volume: 500 ml; Route: IV; Rate: 1 bolus; Site: right wrist; 10:03 Follow up: Response: No adverse reaction; IV Status: Completed infusion; IV Intake: ll1 500ml 10:03 Drug: Levalbuterol Inhalation 2.5 mg Inhalation once Route: Inhalation; ll1 10:03 Drug: Ipratropium Inhalation Aerosol 0.5 mg Inhalation once Route: Inhalation; ll1 10:50 Drug: Rocephin IV 1 grams IV at per protocol once; Given slow IV push per pharmacy cm10 instructions Route: IV; Rate: per protocol; Site: right wrist; 11:06 Follow up: Response: No adverse reaction; IV Status: Completed infusion; IV Intake: [id number] 11:17 Drug: Decadron - Dexamethasone IVP 10 mg IVP once Route: IVP; Site: right wrist; cm10 11:53 Follow up: Response: No adverse reaction cm10 11:17 Drug: AZITHromycin PO 500 mg PO once Route: PO; cm10 11:54 Follow up: Response: No adverse reaction cm10 12:35 Drug: Cefdinir PO Suspension 300 mg PO once Route: PO; cm10 12:44 Follow up: Response: No adverse reaction cm10 Disposition Summary: 12/11/24 11:20 Discharge Ordered Notes: Location: Home giancarlo Problem: new giancarlo Symptoms: have improved giancarlo Condition: Stable giancarlo Diagnosis - Cough giancarlo - Acute upper respiratory infection, unspecified giancarlo - Diarrhea, unspecified giancarlo - UTI/ Urinary tract infection, site not specified giancarlo Followup: giancarlo - With: Private Physician - When: 2 - 3 days - Reason: Recheck today's complaints, Continuance of care, Re-evaluation by your physician Followup: giancarlo - With: Kebede, Tboy, DO - When: 2 - 3 days - Reason: Recheck today's complaints, Re-evaluation by your physician Discharge Instructions: - Discharge Summary Sheet [facility] - Food Choices to Help Relieve Diarrhea, Adult giancarlo - Diarrhea, Adult giancarlo - Upper Respiratory Infection, Adult giancarlo - Cool Mist Vaporizer giancarlo - Urinary Tract Infection, Adult, [id number] gaincarlo - Upper Respiratory Infection, Adult, [id number] giancarlo - Diarrhea, Adult, [id number] giancarlo - Cough, Adult [facility] Forms: - Medication Reconciliation Form [facility] - Antibiotic Education [facility] - Prescription Opioid Use giancarlo - Patient Portal Instructions [facility] - Leadership Thank You Letter [facility] Prescriptions: - albuterol sulfate 90 mcg/actuation Inhalation HFA Aerosol Inhaler - inhale 2 puff INHALATION route every 4-6 hours as needed for shortness of giancarlo breath or wheezing; 1 unit; Refills: 0, Product Selection Permitted - cefdinir 300 mg Oral capsule - take 1 capsule ORAL route 2 times per day; 14 capsule; Refills: 0, Product [facility] Selection Permitted - Tessalon Perles 100 mg Oral capsule - take 2 capsule ORAL route every 8 hours As needed; 30 capsule; Refills: 0, giancarlo Product Selection Permitted - Zithromax Z-Nicolas 250 mg Oral Tablet - take 1 tablet ORAL route as directed for 5 days Day 1 - take two (2) tablets giancarlo one time. Day 2, 3, 4 , 5 take one (1) tablet once daily.; 6 tablet; Refills: 0, Product Selection Permitted - Medrol (Nicolas) 4 mg Oral Tablets, Dose Pack - take 1 tablet ORAL route as directed - follow package instructions; 1 packet; giancarlo Refills: 0, Product Selection Permitted Signatures: Dispatcher [employer] EDMS Ta Navas MD MD cha Lewis, Lynsay RN RN ll1 Damaris Brooks RN RN cm10 Corrections: (The following items were deleted from the chart) 09:16 09:16 CBC+H.LAB.BRZ ordered. EDMS EDMS 09:16 09:16 COMPREHENSIVE METABOLIC PANEL+C.LAB.BRZ ordered. EDMS EDMS 09:16 09:16 COVID-19 Ag + Flu A+B Ag+I.LAB.BRZ ordered. EDMS EDMS 09:16 09:16 Chest Pa And Lat (2 Views)+RAD.RAD.BRZ ordered. EDMS EDMS
[2024-12-11 12:12] LABS: Specific Gravity 1.006 (1.005-1.030); Sqamous Epithelial <5 /HPF (None Seen); Urine Bacteria 20-50 /HPF (<20); Urine Bilirubin NEGATIVE (Negative); Urine Blood Trace (Negative); Urine Clarity Extremely Turbid (Clear); Urine Color Light-Yellow (Yellow); Urine Culture Reflex Order REFLEXED; Urine Glucose NEGATIVE (Negative); Urine Ketones TRACE (Negative); Urine Microscopic Reflex YN ORDER UMIC; Urine Nitrite 2+ (Negative); Urine Protein NEGATIVE (Negative); Urine RBC <5 /HPF (None Seen); Urine Urobilinogen Normal (Normal); Urine WBC >50 /HPF (<5); Urine WBC Clump Few /HPF (None Seen); Urine pH 6.5 (5.0-7.0)
[2024-12-11] MEDS ORDERED: CEFDINIR 300 MG CAP PO ONE (12:30)
[2024-12-11 13:11] VITALS: TEMP 98
[2024-12-11 13:13] VITALS: BP 147/83; O2SAT 98
== END 2024-12-11 12:45 | disposition home or self-care (01) ==
LOC: ER 09:07
DX: J06.9 Acute upper respiratory infection, unspecified (principal); N39.0 Urinary tract infection, site not specified; R19.7 Diarrhea, unspecified; Z11.52 Encounter for screening for COVID-19
CPT/HCPCS: 96365; 87088; 85025; 81001; 87086; 36415; 80053; 71046; 96375; 99285; 87428; J7614; J7644; J1100; J7040; J0696; 87077; 87186

== ENCOUNTER 2024-12-13 14:01 | Emergency (ER) | payer OTHER ==
--- NOTE | 2024-12-13 15:23 | ER ---
Nurse's Notes [facility] Name: Rosa Ag Age: 84 yrs Sex: Female : 1940 Arrival Date: 12/13/2024 Time: 14:01 Bed DIS2 Private MD: Diagnosis: Acute upper respiratory infection, unspecified;UTI/ Urinary tract infection, site not specified Presentation: 12/13 14:25 Chief complaint: Patient states: cough and diarrhea X 1 week , she was here on Wednesday iw and has been on antibiotics. 14:26 Coronavirus screen: Client presents with at least one sign or symptom that may indicate iw coronavirus-19. Ebola Screen: No symptoms or risks identified at this time. Initial Sepsis Screen: Does the patient meet any 2 criteria? No. Patient's initial sepsis screen is negative. Does the patient have a suspected source of infection? No. Patient's initial sepsis screen is negative. Risk Assessment: Do you want to hurt yourself or someone else? Patient reports no desire to harm self or others. Onset of symptoms was December 11, 2024. 14:26 Method Of Arrival: Ambulatory 14:26 Acuity: RITA 3 iw Historical: - Allergies: 14:27 Levaquin; iw - PMHx: 14:27 Asthma; iw - PSHx: 14:27 arm; Cholecystectomy; iw - Immunization history:: Adult Immunizations up to date. - Infectious Disease History:: Denies. - Social history:: Smoking status: Patient denies any tobacco usage or history of. Screenin:18 [facility] ED Fall Risk Assessment (Adult) History of falling in the last 3 months, kc6 including since admission No falls in past 3 months (0 pts) Confusion or Disorientation No (0 pts) Intoxicated or Sedated No (0 pts) Impaired Gait No (0 pts) Mobility Assist Device Used No (0 pt) Altered Elimination No (0 pt) Score/Fall Risk Level 0 - 2 = Low Risk Oriented to surroundings, Maintained a safe environment, Educated pt \\T\\ family on fall prevention, incl call for assistance when getting out of bed. Abuse screen: Denies threats or abuse. Denies injuries from another. Nutritional screening: No deficits noted. Tuberculosis screening: No symptoms or risk factors identified. Assessment: 15:03 Reassessment: Patient and/or family updated on plan of care and expected duration. Pain ll1 level reassessed. 15:16 Reassessment: pt states, "I don't need an IV, I don't need a blood test, I don't need kc6 anything. I need to talk to a doctor about the medicine I took. I'm suddenly feeling much better." KENN Ferreira made aware. Vital Signs: 14:26 BP 143 / 70; Pulse 80; Resp 16 S; Temp 98.6; Weight 54.43 kg; Height 4 ft. 11 in. ; iw 14:26 Body Mass Index 24.24 (54.43 kg, 149.86 cm) ED Course: 14:02 Patient arrived in ED. im 14:05 Jhon Moscoso FNP-C is PHCP. dr5 14:05 Phong Montes De Oca DO is Attending Physician. dr5 14:27 Triage completed. iw 14:27 Arm band placed on. iw 15:03 Patient placed in an exam room, on a stretcher. ll1 15:04 Mariana Greco RN is Primary Nurse. kc6 15:17 Patient has correct armband on for positive identification. Bed in low position. Call kc6 light in reach. Side rails up X 1. Pulse ox on. NIBP on. Door closed. Noise minimized. Lights dimmed. Pillow given. Verbal reassurance given. 15:18 No provider procedures requiring assistance completed. Patient maintains SpO2 kc6 saturation greater than 95% on room air. 15:37 Patient did not have IV access during this emergency room visit. kc6 Administered Medications: 15:37 Not Given (Patient Refused): ns 0.9% 1000 ml IV at 1000 ml once; to be given as a bolus kc6 over 60 minutes 15:37 Not Given (Patient Refused): ondansetron 4 mg IVP once; over 2 minutes kc6 Medication: 15:38 VIS not applicable for this client. kc6 Outcome: 15:22 Discharge ordered by . dr5 15:37 Discharged to home ambulatory, kc6 15:37 Condition: good 15:37 Discharge instructions given to patient, Instructed on discharge instructions, follow up and referral plans. Demonstrated understanding of instructions, follow-up care, 15:38 Patient left the ED. kc6 Signatures: Harmony Arredondo RN RN Adele Mccarthy RN RN ll1 Mariana Greco, RN RN kc6 Glory Tanner Dustin, RESTAURANT MANAGER-C RESTAURANT MANAGER-Cdr5 Corrections: (The following items were deleted from the chart) 14:25 Chief complaint: Patient states: cough and diarrhea X 1 week 14:28 14:26 BP 143 / 70; Pulse 80bpm; Resp 16bpm; Spontaneous; Temp 98.6F; iw
--- NOTE | 2024-12-13 15:23 | EDPHYS ---
Physician Documentation [facility] Name: Rosa Ag Age: 84 yrs Sex: Female : 1940 Arrival Date: 12/13/2024 Time: 14:01 Bed DIS2 Private MD: ED Physician Phong Montes De Oca HPI: 12/13 16:34 This 84 yrs old Female presents to ER via Ambulatory with complaints of Sick. dr5 16:34 Patient is an 84-year-old female with history of asthma coming in with feeling of sick dr5 and coughing all night last night. Patient states that it might be her prednisone is making her feel worse. Patient states that she is taking her antibiotics, denies fever, denies nausea or vomiting. Historical: - Allergies: 14:27 Levaquin; iw - PMHx: 14:27 Asthma; iw - PSHx: 14:27 arm; Cholecystectomy; iw - Immunization history:: Adult Immunizations up to date. - Infectious Disease History:: Denies. - Social history:: Smoking status: Patient denies any tobacco usage or history of. ROS: 16:34 Constitutional: as per hpi dr5 Exam: 16:34 Constitutional: This is a well developed, well nourished patient who is awake, alert, dr5 and in no acute distress. Head/Face: Normocephalic, atraumatic. Eyes: Pupils equal round and reactive to light, extra-ocular motions intact. Lids and lashes normal. Conjunctiva and sclera are non-icteric and not injected. Cornea within normal limits. Periorbital areas with no swelling, redness, or edema. ENT: Nares patent. No nasal discharge, no septal abnormalities noted. Tympanic membranes are normal and external auditory canals are clear. Oropharynx with no redness, swelling, or masses, exudates, or evidence of obstruction, uvula midline. Mucous membranes moist. Neck: Trachea midline, no thyromegaly or masses palpated, and no cervical lymphadenopathy. Supple, full range of motion without nuchal rigidity, or vertebral point tenderness. No Meningismus. Chest/axilla: Normal chest wall appearance and motion. Nontender with no deformity. No lesions are appreciated. Cardiovascular: Regular rate and rhythm with a normal S1 and S2. Normal PMI, no JVD. No pulse deficits. Abdomen/GI: Soft, non-tender, non-distended Back: No spinal tenderness. No costovertebral tenderness. Full range of motion. Skin: Warm, dry with normal turgor. Normal color with no rashes, no lesions, and no evidence of cellulitis. Neuro: Awake and alert, GCS 15, oriented to person, place, time, and situation. Cranial nerves II-XII grossly intact. Motor strength 5/5 in all extremities. Sensory grossly intact. Cerebellar exam normal. Normal gait. Vital Signs: 14:26 BP 143 / 70; Pulse 80; Resp 16 S; Temp 98.6; Weight 54.43 kg; Height 4 ft. 11 in. ; iw 14:26 Body Mass Index 24.24 (54.43 kg, 149.86 cm) iw MDM: 14:12 Medical Screening Exam initiated dr5 16:34 Differential diagnosis: viral Infection, bacterial infection, URI, bronchitis. Data dr5 reviewed: vital signs, nurses notes. Care significantly affected by the following chronic conditions: Asthma. Care significantly affected by the following Social Determinants of Health: Poor access to healthcare and/or lack of insurance, Poor access to transportation, Problems related to employment. Counseling: I had a detailed discussion with the patient and/or guardian regarding the historical points, exam findings, and any diagnostic results supporting the discharge/admit diagnosis, the presence of at least one elevated blood pressure reading (>120/80) during this emergency department visit, lab results, to return to the emergency department if symptoms worsen or persist or if there are any questions or concerns that arise at home. ED course: When going into room for IV, blood work, urine patient stated that she does not want any that stuff and that she is feeling much better and wants to go home. Explained the patient the need to recheck if symptoms are worse and patient kindly declined. STRICT ER precautions given. Patient ambulated with steady gait.. Administered Medications: 15:37 Not Given (Patient Refused): ns 0.9% 1000 ml IV at 1000 ml once; to be given as a bolus kc6 over 60 minutes 15:37 Not Given (Patient Refused): ondansetron 4 mg IVP once; over 2 minutes kc6 Disposition: 16:55 I was immediately available on-site in the Emergency Department for consultation in the [facility] care of the patient. Disposition Summary: 12/13/24 15:22 Discharge Ordered Notes: Location: Home dr5 Condition: Stable dr5 Diagnosis - Acute upper respiratory infection, unspecified dr5 - UTI/ Urinary tract infection, site not specified dr5 Followup: dr5 - With: Emergency Department - When: As needed - Reason: Worsening of condition Followup: dr5 - With: Private Physician - When: 1 - 2 days - Reason: Recheck today's complaints, Continuance of care, Re-evaluation by your physician Discharge Instructions: - Discharge Summary Sheet dr5 - Urinary Tract Infection, Adult, [id number] dr5 Forms: - Medication Reconciliation Form dr5 - Antibiotic Education dr5 - Patient Portal Instructions dr5 - Leadership Thank You Letter dr5 Prescriptions: - Bromfed DM 2-30-10 mg/5 mL Oral syrup - administer 5 milliliter ORAL route every 6 hours As needed as needed for sinus dr5 symptoms; 240 milliliter; Refills: 0, Product Selection Permitted Signatures: Dispatcher [employer] EDHarmony Leahy RN RN iw Phong Montes De Oca DO DO ms3 Mariana Greco RN RN kc6 Jhno Moscoso, IP ARCHITECT-C IP ARCHITECT-Cdr5 Corrections: (The following items were deleted from the chart) 14:30 14:30 Chest Pa And Lat (2 Views)+RAD.RAD.BRZ ordered. EDMS EDMS
[2024-12-13 15:43] VITALS: BP 143/70; TEMP 98.6
== END 2024-12-13 15:38 | disposition home or self-care (01) ==
LOC: ER 14:01
DX: J06.9 Acute upper respiratory infection, unspecified (principal); N39.0 Urinary tract infection, site not specified; J45.909 Unspecified asthma, uncomplicated
CPT/HCPCS: 99283